=== PATIENT | male | born 1930 | race Caucasian/White ===

== ENCOUNTER 2018-08-20 09:30 | Outpatient (CLI) | payer MEDICARE, BC ==
[~2018-08-20] VITALS: Ht 185.4 cm; Wt 87.6 kg
--- NOTE | ~2018-08-20 | HEMODYNAMI ---
PATIENT:TIFFANIE CESAR MEDICAL RECORD: [id number] : 34 LOCATION:[facility] ADMISSION DATE: 08/20/18 Generatedon:08/20/201817:19 Patient name: TIFFANIE CESAR Patient #: [id number] SSN: : 1930 Date of study: 08/20/2018 Page: Of Hemodynamic Procedure Report Patient Data Patient Demographics Procedure consent was obtained First Name: TIFFANIE Gender: Male Last Name: ARSENIO : 1930 Patient #: [id number] Age: 88 year(s) Race: Unknown Additional ID: [id number] Contact details [address]: [address] [place] [address] State: [place] City: [place] Zip code: [address] Admission Admission Data Admission Date: 08/20/2018 Admission Time: 9:30 Procedure Procedure Types Cath Procedure Diagnostic Procedure LHC LHC w/Coronaries PCI Procedure Coronary Stent Coronary Stent Initial Procedure Description Procedure Date Procedure Date: 08/20/2018 Procedure Start Time: 16:54 Procedure End Time: 17:17 Procedure Staff Name Function Kash Rangel MD Performing Physician Danny Conklin RT Monitor Shon Calhoun RT Scrub Thmo Blanco RN Nurse Procedure Data Cath Procedure Fluoroscopy Diagnostic fluoroscopy Total fluoroscopy Time: 7.5 time: 7.5 min min Diagnostic fluoroscopy Total fluoroscopy dose: dose: 1201 mGy 1201 mGy Contrast Material Contrast Material Type Amount (ml) Isovue 300 78 Entry Location Entry Primary Successful Side Size Upsize Upsize Entry Closure Ybarra ccessful Closure Location (Fr) 1 (Fr) 2 (Fr) Remarks Device Remarks Radial Right 6 Fr Mechanical artery Short Compression Estimated blood loss: 10 ml Diagnostic catheters Device Type Used For End Catheter Placement DIAGNOSTIC [place] 110cm 5 Procedure Fr catheter ([id number]) Procedure Complications No complications Procedure Medications Medication Administration Route Dosage Oxygen etCO2 Nasal cannula 2 l/min Heparin Flush Bag added to field 2 bags (1000units/500ml NS) 0.9% NaCl I.V. 100 ml/hr Lidocaine 2% added to field 20 Radial Cocktail added to field (Verapomil 2mg/Nitro 400mcg/Heparin 1500units) Fentanyl I.V. 50 mcg Versed I.V. 1 mg Fentanyl I.V. 50 mcg Versed I.V. 1 mg Radial Cocktail I.A. (Verapomil 2mg/Nitro 400mcg/Heparin 1500units) Heparin Bolus I.V. 4000 units Integrilin (Bolus I.V. 7.9 ml 2mg/ml) Integrilin (Bolus wasted 2.1 ml 2mg/ml) Plavix P.O. 600 mg Hemodynamics Rest Heart Rate: 53 (bpm) Snapshots Pre Cath Intra NCS Post Cath Vital Signs Time Heart Resp SPO2 etCO2 NIBP (mmHg) Rhythm Pain Sedation Rate (ipm) (%) (mmHg) Status Level (bpm) 16:47:51 59 17 89 20.3 128/66(105) NSR 0 (11) 10(A) , No pain 16:52:07 53 17 91 0 116/56(98) NSR 0 (11) 9(A) , No pain 16:56:21 62 16 93 10.5 100/50(80) NSR 0 (11) 9(A) , No pain 17:00:27 63 17 93 28.6 114/59(89) NSR 0 (11) 9(A) , No pain 17:04:37 59 16 93 9 116/60(79) NSR 0 (11) 9(A) , No pain 17:08:47 63 17 94 21.8 112/63(85) NSR 0 (11) 9(A) , No pain 17:12:56 62 17 93 14.3 106/57(83) NSR 0 (11) 9(A) , No pain 17:17:02 61 16 94 18.8 121/62(88) NSR 0 (11) 9(A) , No pain Medications Time Medication Route Dose Verified Delivered Reason Notes Effectiveness by by 16:45:29 Oxygen etCO2 2 Kash Tomas Per physician Nasal l/min Juan Carlos Blanco RN cannula 16:45:37 Heparin Flush added 2 Kash Tomas used for Bag to bags Juan Carlos Blanco rural sociologist (1000units/500ml field NS) 16:45:47 0.9% NaCl I.V. 100 Kash Tomas Per physician ml/hr Juan Carlos Blanco RN 16:45:58 Lidocaine 2% added 20ml Kash Tomas used for to vial Juan Carlos Blanco RN procedure field 16:46:05 Radial Cocktail added Kash Tomas used for (Verapomil to Juan Carlos Blanco RN procedure 2mg/Nitro field 400mcg/Heparin 1500units) 16:51:58 Fentanyl I.V. 50 Kash Tomas for sedation mcg Juan Carlos Blanco RN 16:52:06 Versed I.V. 1 mg Kash Tomas for sedation Juan Carlos Blanco RN 16:54:47 Fentanyl I.V. 50 Kash Tomas for sedation mcg Juan Carlos Blanco RN 16:54:58 Versed I.V. 1 mg Kash Tomas for sedation Juan Carlos Blanco RN 16:55:13 Radial Cocktail I.A. Kash Hewitt for (Verapomil Juan Carlos Rangel MD vasodilation 2mg/Nitro 400mcg/Heparin 1500units) 17:00:18 Heparin Bolus I.V. 4000 Kash Tomas for units Juan Carlos Blanco RN anticoagulation 17:00:28 Integrilin I.V. 7.9 Kash Tomas for (Bolus 2mg/ml) ml Juan Carlos Blanco RN antiplatelet therapy 17:00:38 Integrilin wasted 2.1 Kash Tomas for (Bolus 2mg/ml) ml Juan Carlos Blanco RN antiplatelet therapy 17:16:54 Plavix P.O. 600 Kash Tomas for mg Juan Carlos Blanco RN antiplatelet therapy Procedure Log Time Note 16:20:40 Danny ESTEBAN(R) sent for patient. Start room use. 16:23:38 Diagnostic Cath status Elective 16:23:41 Time tracking: Regular hours (M-F 7:00 - 5:00) 16:23:45 Plan of Care:Hemodynamics will remain stable., Cardiac rhythm will remain stable., Comfort level will be maintained., Respiratory function will remain adequate., Patient/ family verbilizes understanding of procedure., Procedure tolerated without complication., Recovers from procedure without complications.. 16:40:12 Patient received from ED to CCL 2 Alert and oriented. Tansferred to table in Supine position. 16:40:14 Correct patient and procedure confirmed by team. 16:40:14 Warm blankets applied, and ramirez hugger turned on for patient comfort. 16:40:15 Signed procedure consent form obtained from patient. 16:40:16 ECG and BP/O2 sat monitors applied to patient. 16:45:29 Oxygen 2 l/min etCO2 Nasal cannula was administered by Thom Blanco RN; Per physician; 16:45:37 Heparin Flush Bag (1000units/500ml NS) 2 bags added to field was administered by Thom Blanco RN; used for procedure; 16:45:38 Vital chart was started 16:45:47 0.9% NaCl 100 ml/hr I.V. was administered by Thom Blanco RN; Per physician; 16:45:58 Lidocaine 2% 20ml vial added to field was administered by Thom Blanco RN; used for procedure; 16:46:05 Radial Cocktail (Verapomil 2mg/Nitro 400mcg/Heparin 1500units) added to field was administered by Thom Blanco RN; used for procedure; 16:50:55 Baseline sample Acquired. 16:50:59 Rhythm: sinus bradycardia 16:51:01 Full Disclosure recording started 16:51:10 H&P Date Dictated: 08/20/2018 Emergent; H&P N/A. 16:51:10 Pre-procedure instructions explained to patient. 16:51:11 Pre-op teaching completed and patient verbalized understanding. 16:51:12 Family in waiting room. 16:51:13 Patient NPO since Midnight. 16:51:15 Is the patient allergic to Iodine/contrast media? No. 16:51:16 Is patient on blood thinner?No 16:51:19 Patient diabetic? No. 16:51:22 Previous problem with sedation/anesthesia? No ? 16:51:22 Snore? Yes 16:51:23 Sleep apnea? Yes 16:51:24 Deviated septum? No 16:51:25 Opens mouth fully? Yes 16:51:25 Sticks out tongue? Yes 16:51:27 Airway obstruction? No ? 16:51:28 Dentures? No ? 16:51:31 Pre procedure: right dorsailis pedis pulse 1+ Palpable, but thready & weak; easily obliterated 16:51:32 Modified Ziggy's test Ulnar < 7 seconds 16:51:34 Patient pain scale 0/10 ?. 16:51:46 IV patent on arrival in left forearm with 0.9% NaCl at [facility]. 16:51:50 Lab results completed and on chart. 16:51:53 Right Radial & Right Groin area was prepped with chlora-prep and draped in sterile fashion 16:51:54 Alarms reviewed by R. N. 16:51:54 Sharps counted by scrub and verified by R.N. 16:51:55 --------ALL STOP TIME OUT------ 16:51:56 Final Timeout: patient, procedure, and site verified with staff and physician. All members of the team are in agreement. 16:51:58 Fentanyl 50 mcg I.V. was administered by Thom Blanco RN; for sedation; 16:51:58 Right Radial & Right Groin site verified by team. 16:52:00 Physical assessment completed. ASA score P 2 - A patient with mild systemic disease as per Kash Rangel MD. 16:52:03 Sedation plan: IV Moderate Sedation Medication:Versed, Fentanyl 16:52:06 Versed 1 mg I.V. was administered by Thom Blanco RN; for sedation; 16:53:44 Use device set Radial Dx or PCI 16:53:49 Tegaderm 4 x 4 (1626W) opened to sterile field. 16:53:50 ACIST Hand Control (47246) opened to sterile field. 16:53:50 ACIST Manifold (12411) opened to sterile field. 16:53:51 ACIST Syringe (57344) opened to sterile field. 16:53:51 Medline Cath Pack ([id number]) opened to sterile field. 16:53:52 Bag Decanter () opened to sterile field. 16:53:52 DIAGNOSTIC WIRE .035 260cm J wire (857915) opened to sterile field. 16:53:52 MBrace Wrist Support ([id number]) opened to sterile field. 16:53:54 SHEATH 6FR Slender (90-9138) opened to sterile field. 16:54:02 Procedure started. 16:54:12 Local anesthetic to right radial artery with Lidocaine 2% by Kash Rangel MD.INITIAL ACCESS ONLY 16:54:35 A 6 Fr Short sheath was inserted into the Right Radial artery 16:54:42 A DIAGNOSTIC [place] 110cm 5 Fr catheter ([id number]) was advanced over the wire and used for Procedure. 16:54:47 Fentanyl 50 mcg I.V. was administered by Thom Blanco RN; for sedation; 16:54:58 Versed 1 mg I.V. was administered by Thom Blanco RN; for sedation; 16:55:08 LV angiography performed. 16:55:09 LV gram done using PHILLIPS 16:55:13 Radial Cocktail (Verapomil 2mg/Nitro 400mcg/Heparin 1500units) I.A. was administered by Kash Rangel MD; for vasodilation; 16:55:15 EF : 50 % 16:55:20 Injector settings: Ml/sec: 7, Volume: 15, 16:56:17 LCA angiography performed. 16:56:48 Use device set JOE PCI 16:56:51 INFLATOR Merit BasixCompak (UP0464) opened to sterile field. 16:57:03 CHOICE PT Extra Support 182cm wire ([id number]) opened to sterile field. 16:57:11 RCA angiography performed. 16:58:09 Catheter exchanged over wire. 16:58:20 GUIDE 6FR AR 1.0 SH catheter ([id number]) opened to sterile field. 17:00:18 Heparin Bolus 4000 units I.V. was administered by Thom Blacno RN; for anticoagulation; 17:00:25 6 Fr AR 1 SH guide catheter was inserted over the wire 17:00:28 Integrilin (Bolus 2mg/ml) 7.9 ml I.V. was administered by Thom Blanco RN; for antiplatelet therapy; 17:00:38 Integrilin (Bolus 2mg/ml) 2.1 ml wasted was administered by Thom Blanco RN; for antiplatelet therapy; 17:00:41 CPTXS wire advanced. 17:01:24 Wire removed. unable to cross lesion. 17:01:26 Guide catheter removed. 17:01:38 GUIDE 6FR AR 2.0 SH catheter ([id number]) opened to sterile field. 17:01:49 6 Fr AR 2 SH guide catheter was inserted over the wire 17:02:25 CPTXS wire advanced. 17:03:48 Wire advanced across lesion. 17:04:07 Inflate balloon Inflation number: 1 A EUPHORA 3.5 x 15 Balloon ([id number]) was prepped and advanced across the Prox RCA, then inflated to 15 JUSTIN for 0:10 (min:sec). 17:04:36 Inflation number: 2 The EUPHORA 3.5 x 15 Balloon ([id number]) was reinflated across the Prox RCA, to 17 JUSTIN for 0:10 (min:sec). 17:04:38 Balloon removed over the wire. 17:06:41 WHISPER 190cm wire ([id number]) opened to sterile field. 17:06:55 Whisper wire advanced as a jil wire. 17:08:36 The NIMISHA RX 3.5 x 12 stent ([id number]) was advanced then removed because of failure to cross lesion 17:09:58 Inflate balloon Inflation number: 3 A EUPHORA 4.0 x 15 Balloon ([id number]) was prepped and advanced across the Prox RCA, then inflated to 13 JUSTIN for 0:10 (min:sec). 17:11:44 Balloon removed over the wire. 17:12:15 Whisper wire removed. 17:12:18 Place stent Inflation Number: 4 A NIMISHA RX 3.5 x 12 stent ([id number]) was prepped and advanced across the Prox RCA. The stent was deployed at 17 JUSTIN for 0:10 (min:sec). 17:12:49 TR BAND Standard ([id number]) opened to sterile field. 17:12:54 Balloon removed over the wire. 17:12:55 Stent catheter was removed intact over wire. 17:12:55 Wire removed. 17:12:56 Guide catheter removed. 17:14:13 Sheath removed intact; hemostasis achieved with Mechanical Compression to the Right Radial artery. 17:14:14 Procedure ended.(Physican Out) 17:14:26 Fluoroscopy time 07.50 minutes. 17:14:36 Flurop Dose total: 1201 17:14:36 Fluoroscopy dose: 1201 mGy 17:14:41 Contrast amount:Isovue 300 78ml. 17:14:42 Sharps counted by scrub and verified by R.N. 17:14:45 TR band inflated with 10cc of air. 17:14:46 Insertion/operative site no bleeding no hematoma. 17:16:11 Post Procedure Pulses reassessed and unchanged 17:16:13 Post-procedure physical assessment completed. ASA score P 2 - A patient with mild systemic disease as per Kash Rangel MD. 17:16:16 Post procedure rhythm: unchanged. 17:16:19 Estimated blood loss: 10 ml 17:16:20 Post procedure instruction explained to patient.Patient verbalizes understanding. 17:16:20 Patient needs reinforcement of post procedure teaching. 17:16:27 Procedure type changed to Cath procedure, Diagnostic procedure, LHC, LHC w/Coronaries, PCI procedure, Coronary Stent, Coronary Stent Initial 17:16:28 Procedure and supply charges have been captured, reviewed, submitted and are correct. 17:16:30 Procedure Complication : No complications 17:16:54 Plavix 600 mg P.O. was administered by Thom Blanco RN; for antiplatelet therapy; 17:16:54 Vital chart was stopped 17:16:55 See physician's report for complete and final results. 17:16:58 Report given to PCU. 17:17:00 Patient transfered to PCU with Bed. 17:17:02 Procedure ended. 17:17:02 Full Disclosure recording stopped 17:18:49 End room use (Document Last) Intervention Summary Intervention Notes Time ActionType Lesion and Equipment Used Action# Pressure Duration Attributes 17:04:07 Inflate Prox RCA EUPHORA 3.5 x 1 15 00:10 balloon 15 Balloon ([id number]) 17:04:36 Reinflate Prox RCA EUPHORA 3.5 x 2 17 00:10 balloon 15 Balloon ([id number]) 17:08:36 Discard NIMISHA RX 3.5 x Stent 12 stent ([id number]) 17:09:58 Inflate Prox RCA EUPHORA 4.0 x 3 13 00:10 balloon 15 Balloon ([id number]) 17:12:18 Place stent Prox RCA NIMISHA RX 3.5 x 4 17 00:10 12 stent ([id number]) Device Usage Item Name Manufacture Quantity Catalog Number Hospital Part Current M inimal Lot# / Charge Number Stock Stock Serial# Code Tegaderm 4 x 4 3M 1 1626W 991223 324200 [id number] 5 (1626W) ACIST Hand Acist 1 76580 231514 788221 679521 5 Pacific DataVision (20536Bunkr ACIST Manifold Acist 1 27250 905779 912765 477150 5 (58299) Medical Systems Inc ACIST Syringe Acist 1 82720 765316 684613 705882 2 0 (89976) Medical Systems Inc Medline Cath Medline 1 [id number] 098840 38328 105804 5 Pack ([id number]) Bag Decanter Microtek 1 2001S 812486 43245 794400 5 () Medical Inc. DIAGNOSTIC [place] 1 677380 811975 744633 753076 3 0 WIRE .035 260cm J wire (522079) MBrace Wrist Advanced 1 140-0250-00 655318 47943 779765 5 Support Vascular ([id number]) Dynamics SHEATH 6FR Terumo 1 [id number] 018867 236338 881339 5 Slender (80-1060) DIAGNOSTIC Terumo 1 405013 248634 009021 022939 5 [place] 110cm 5 Fr catheter (899419) INFLATOR Merit Merit 1 LL6227 159071 322232 464012 1 5 ATEME (JS2288) CHOICE PT [place] 1 [id number] 466696 328942 869130 5 Extra Support Scientific 182cm wire ([id number]) GUIDE 6FR AR Medtronic 1 [id number] 911903 21653 642317 1 1.0 SH catheter ([id number]) GUIDE 6FR AR Medtronic 1 [id number] 937523 15540 239005 1 2.0 SH catheter ([id number]) EUPHORA 3.5 x Medtronic 1 [id number] 890634 089915 133449 5 [id number] 15 Balloon ([id number]) WHISPER 190cm Giron 1 [id number] 164243 299556 912419 5 wire Vascular ([id number]) NIMISHA RX 3.5 x Medtronic 1 [id number] 720555 7119119 506108 5 [id number] 12 stent ([id number]) EUPHORA 4.0 x Medtronic 1 [id number] 105804 267091 606055 5 [id number] 15 Balloon ([id number]) TR BAND Terumo 1 [id number] 042869 692949 356104 4 0 Standard ([id number]) Signature Audit [place] Stage Time Signature Unsigned Intra-Procedure 08/20/2018 Danny Conklin 5:19:10 PM RT(R) Signatures Monitor : Danny Conklin RT Signature : Date : Time : [place] [id number]
--- NOTE | ~2018-08-20 | HEMODYNAMI ---
PATIENT:TIFFANIE CESAR MEDICAL RECORD: [id number] : 34 LOCATION:[facility] D.2116 ADMISSION DATE: 08/20/18 Generatedon:08/21/20189:46 Patient name: TIFFANIE CESAR Patient #: [id number] SSN: : 1930 Date of study: 08/21/2018 Page: Of Hemodynamic Procedure Report Patient Data Patient Demographics Procedure consent was obtained First Name: TIFFAINE Gender: Male Last Name: ARSENIO : 1930 Patient #: [id number] Age: 88 year(s) Race: Unknown Additional ID: [id number] Contact details Address: [address] [place] [address] State: [place] City: [place] Zip code: [address] Admission Admission Data Admission Date: 08/20/2018 Admission Time: 9:30 Room #: 2116 Procedure Procedure Types Cath Procedure PCI Procedure Coronary Stent Coronary Stent Initial Procedure Description Procedure Date Procedure Date: 08/21/2018 Procedure Start Time: 9:38 Procedure End Time: 9:44 Procedure Staff Name Function Kash Rangel MD Performing Physician Thom Blanco RN Firefighter Duyen Jernigan RT Scrub José Miguel Ewing RN Nurse Marcio Duncan RT Monitor Chaz Ramesh RT Monitor Procedure Data Cath Procedure Fluoroscopy Diagnostic fluoroscopy Total fluoroscopy Time: 1.3 time: 1.3 min min Diagnostic fluoroscopy Total fluoroscopy dose: 228 dose: 228 mGy mGy Contrast Material Contrast Material Type Amount (ml) Isovue 300 38 Entry Location Entry Primary Successful Side Size Upsize Upsize Entry Closure Succes sful Closure Location (Fr) 1 (Fr) 2 (Fr) Remarks Device Remarks Femoral Right 6 Fr Exoseal artery Short Procedure Complications No complications Procedure Medications Medication Administration Route Dosage 0.9% NaCl I.V. 100 ml/hr Oxygen etCO2 Nasal cannula 2 l/min Heparin Flush Bag added to field 2 bags (1000units/500ml NS) Lidocaine 2% added to field 20 Versed I.V. 1 mg Heparin Bolus I.V. 4000 units Fentanyl I.V. 50 mcg Hemodynamics Rest Heart Rate: 64 (bpm) Snapshots Pre Cath Intra NCS Post Cath Vital Signs Time Heart Resp SPO2 etCO2 NIBP (mmHg) Rhythm Pain Sedation Rate (ipm) (%) (mmHg) Status Level (bpm) 9:10:41 65 13 96 2.2 148/75(131) NSR 0 (11) 10(A) , No pain 9:14:59 57 17 92 0 141/69(109) NSR 0 (11) 10(A) , No pain 9:19:17 57 10 92 0 134/66(108) NSR 0 (11) 10(A) , No pain 9:23:31 57 19 94 0 129/72(109) NSR 0 (11) 10(A) , No pain 9:27:45 57 14 91 0 127/65(108) NSR 0 (11) 10(A) , No pain 9:31:55 58 15 91 0 126/71(105) NSR 0 (11) 10(A) , No pain 9:36:07 56 10 92 0 136/65(109) NSR 0 (11) 9(A) , No pain 9:40:23 63 13 92 0 129/68(115) NSR 0 (11) 9(A) , No pain 9:45:28 54 12 93 0 129/69(101) NSR 0 (11) 10(A) , No pain Medications Time Medication Route Dose Verified Delivered Reason Notes Effectiveness by by 9:10:09 0.9% NaCl I.V. 100 José Miguel José Miguel Per physician ml/hr Gildardo Ewing RN RN 9:10:19 Oxygen etCO2 2 José Miguel José Miguel Per physician Nasal l/min Gildardo Ewing cannula RN RN 9:10:40 Heparin Flush added 2 José Miguel José Miguel used for Bag to bags Gildardo Ewing procedure (1000units/500ml field MANZANARES RN NS) 9:10:50 Lidocaine 2% added 20ml José Miguel José Miguel for local to vial Gildardo Ewing anesthetic field MANZANARES RN 9:32:17 Fentanyl I.V. 50 José Miguel José Miguel for sedation mcg Gildardo Ewing RN RN 9:32:30 Versed I.V. 1 mg José Miguel José Miguel for sedation Gildardo Ewing RN RN 9:40:34 Heparin Bolus I.V. 4000 José Miguel Valdez for units Gildardo Ewing anticoagulation RN hedge fund accountant Log Time Note 8:55:55 Diagnostic Cath status Urgent 8:55:58 Thom Blanco RN sent for patient. Start room use. 8:56:00 Time tracking: Regular hours (M-F 7:00 - 5:00) 8:56:04 Plan of Care:Hemodynamics will remain stable., Cardiac rhythm will remain stable., Comfort level will be maintained., Respiratory function will remain adequate., Patient/ family verbilizes understanding of procedure., Procedure tolerated without complication., Recovers from procedure without complications.. 9:09:24 Patient received from Med II to CCL 2 Alert and oriented. Tansferred to table in Supine position. 9:09:25 Warm blankets applied, and ramirez hugger turned on for patient comfort. 9:09:25 Correct patient and procedure confirmed by team. 9:09:27 Signed procedure consent form obtained from patient. 9::28 ECG and BP/O2 sat monitors applied to patient. 9:09:28 Vital chart was started 9:09:29 Baseline sample Acquired. 9:10:09 0.9% NaCl 100 ml/hr I.V. was administered by José Miguel Ewing RN; Per physician; 9:10:19 Oxygen 2 l/min etCO2 Nasal cannula was administered by José Miguel Ewing RN; Per physician; 9:10:40 Baseline sample Acquired. 9:10:40 Heparin Flush Bag (1000units/500ml NS) 2 bags added to field was administered by José Miguel Ewing RN; used for procedure; 9:10:45 Rhythm: sinus rhythm 9:10:47 Full Disclosure recording started 9:10:50 Lidocaine 2% 20ml vial added to field was administered by José Miguel Ewing RN; for local anesthetic; 9:11:21 H&P Date Dictated: 08/21/2018 New H&P dictated by physician.. 9:11:23 Pre-procedure instructions explained to patient. 9:11:24 Pre-op teaching completed and patient verbalized understanding. 9:11:27 Family in waiting room. 9:11:33 Patient NPO since Midnight. 9:11:54 Is the patient allergic to Iodine/contrast media? No. 9:11:58 Is patient on blood thinner?Yes 9:12:01 ACC The patient was administered the following blood thiners within the last 24 hours: ACCPlavix 9:12:04 Patient diabetic? No. 9:12:10 ----Pre-sedation anethsthesia assessment.---- 9:12:15 Snore? Yes 9:12:16 Sleep apnea? Yes 9:12:18 Deviated septum? No 9:12:19 Opens mouth fully? Yes 9:12:20 Sticks out tongue? Yes 9:12:23 Airway obstruction? No ? 9:12:27 Dentures? No ? 9:15:24 Pre procedure: right dorsailis pedis pulse 1+ Palpable, but thready & weak; easily obliterated 9:15:59 Patient pain scale 0/10 ?. 9:16:24 IV patent on arrival in left antecubital with 0.9% NaCl at 10ml/hr. 9:21:49 Right groin area was prepped with chlora-prep and draped in sterile fashion 9:21:50 Alarms reviewed by R. N. 9:21:51 Sharps counted by scrub and verified by R.N. 9:28:20 Zero performed for pressure channel P1 9:29:58 Physician arrived 9:29:59 --------ALL STOP TIME OUT------ 9:30:00 Final Timeout: patient, procedure, and site verified with staff and physician. All members of the team are in agreement. 9:30:02 Right groin site verified by team. 9:30:10 Physical assessment completed. ASA score P 2 - A patient with mild systemic disease as per Kash Rangel MD. 9:30:14 Sedation plan: IV Moderate Sedation Medication:Versed, Fentanyl 9:30:25 Bag Decanter (2002) opened to sterile field. 9:30:25 Medline Cath Pack ([id number]) opened to sterile field. 9:30:26 DIAGNOSTIC WIRE .035 260cm J wire (101637) opened to sterile field. 9:30:27 ACIST Hand Control (14369) opened to sterile field. 9:30:27 ACIST Manifold (47944) opened to sterile field. 9:30:28 DIAGNOSTIC Multipack 5Fr catheter set (OR8530) opened to sterile field. 9:30:29 Tegaderm 4 x 4 (1626W) opened to sterile field. 9:30:41 ACIST Syringe (57216) opened to sterile field. 9:31:03 SHEATH 6FR [place] (SYM353) opened to sterile field. 9:31:03 CHOICE PT Extra Support 182cm wire ([id number]) opened to sterile field. 9:31:04 INFLATOR Merit BasixCompak (XD6959) opened to sterile field. 9:32:17 Fentanyl 50 mcg I.V. was administered by José Miguel Ewing RN; for sedation; 9:32:30 Versed 1 mg I.V. was administered by José Miguel Ewing RN; for sedation; 9:37:32 GUIDE 6FR XBLAD 4.0 catheter ([id number]) opened to sterile field. 9:37:36 Procedure started. 9:38:00 Local anesthetic to right femoral artery with Lidocaine 2% by Kash Rangel MD.INITIAL ACCESS ONLY 9:38:08 A 6 Fr Short sheath was inserted into the Right Femoral artery 9:39:04 6 Fr XBLAD 4 guide catheter was inserted over the wire 9:39:12 CPTES wire advanced. 9:40:34 Heparin Bolus 4000 units I.V. was administered by José Miguel Ewing RN; for anticoagulation; 9:41:48 Place stent Inflation Number: 1 A NIMISHA RX 2.5 x 15 stent ([id number]) was prepped and advanced across the Mid LAD. The stent was deployed at 15 JUSTIN for 0:13 (min:sec). 9:41:50 Stent catheter was removed intact over wire. 9:41:51 Wire removed. 9:41:54 Guide catheter removed. 9:41:59 Contrast amount:Isovue 300 38ml. 9:42:07 Sheath removed intact; hemostasis achieved with Exoseal to the Right Femoral artery. 9:42:08 Procedure ended.(Physican Out) 9:42:49 EXOSEAL 6Fr (EX600) opened to sterile field. 9:43:17 Fluoroscopy time 01.30 minutes. 9:43:26 Flurop Dose total: 228 9:43:26 Fluoroscopy dose: 228 mGy 9:43:27 Sharps counted by scrub and verified by R.N. 9:43:28 Insertion/operative site no bleeding no hematoma. 9:43:30 Post-op/insertion site Right Femoral artery dressed using a 4 x 4 and Tegaderm. 9:43:33 Post right femoral artery:stable 9:43:35 Post Procedure Pulses reassessed and unchanged 9:43:37 Post procedure: right dorsailis pedis pulse 1+ Palpable, but thready & weak; easily obliterated. 9:43:39 Post procedure rhythm: sinus rhythm 9:43:42 Post procedure instruction explained to patient.Patient verbalizes understanding. 9:43:44 Procedure and supply charges have been captured, reviewed, submitted and are correct. 9:44:03 Procedure Complication : No complications 9:44:05 Vital chart was stopped 9:44:06 See physician's report for complete and final results. 9:44:41 Report given to PCU. 9:44:51 Patient transfered to PCU with Bed. 9:44:53 Procedure ended. 9:44:53 Full Disclosure recording stopped 9:44:57 End room use (Document Last) Intervention Summary Intervention Notes Time ActionType Lesion and Equipment Used Action# Pressure Duration Attributes 9:41:48 Place stent Mid LAD NIMISHA RX 2.5 x 1 15 00:13 15 stent ([id number]) Device Usage Item Name Manufacture Quantity Catalog Number Hospital Part Current M inimal Lot# / Charge Number Stock Stock Serial# Code Bag Decanter Microtek 1 [id number] 22644 813681 5 () Medical Inc. Medline Cath Medline 1 [id number] 903192 70755 860348 5 Pack ([id number]) DIAGNOSTIC [place] 1 052429 923608 551276 533842 3 0 WIRE .035 260cm J wire (818487) ACIST Hand Acist 1 27807 230374 654324 009561 5 Control Medical (33047) Systems Inc ACIST Manifold Acist 1 19548 745775 455636 460612 5 (50698) Medical Systems Inc DIAGNOSTIC Cardinal 1 YJ5732 061034 18556 944298 3 0 Multipack 5Fr Health catheter set (XX5827) Tegaderm 4 x 4 3M 1 1626W 954890 690198 266916 5 (1626W) ACIST Syringe Acist 1 51817 480158 089173 472243 2 0 (55797) Medical Systems Inc SHEATH 6FR Terumo 1 FVW562 731980 213933 675308 4 0 [place] (QNO227) CHOICE PT [place] 1 [id number] 670742 720847 889095 5 Extra Support Scientific 182cm wire ([id number]) INFLATOR Merit Merit 1 WZ5486 042907 468806 602996 1 5 [facility] (HT2840) GUIDE 6FR Cardinal 1 [id number] 190605 580371 619474 3 XBLAD 4.0 Health catheter ([id number]) NIMISHA RX 2.5 x Medtronic 1 [id number] 962132 8362951 340548 5 [id number] 15 stent ([id number]) EXOSEAL 6Fr Cardinal 1 EX600 166360 231698 514870 1 0 (EX600) Health Signature Audit [place] Stage Time Signature Unsigned Intra-Procedure 08/21/2018 Chaz Ramesh RT(R) 9:46:25 AM Signatures Monitor : Marcio Duncan RT Signature : Date : Time : Monitor : Chaz Ramesh RT Signature : Date : Time : [place] [address] [place] [address]
[2018-08-20] MEDS ORDERED: BAYER CHEWABLE81 MG PO (09:35)
[2018-08-20] MEDS ORDERED: LISINOPRIL5 MG PO (09:35)
[2018-08-20] MEDS ORDERED: SYNTHROID175 MCG PO (09:35)
[2018-08-20] MEDS ORDERED: NORVASC10 MG PO (09:36)
[2018-08-20] MEDS ORDERED: VITAMIN B650 MG PO (09:36)
[2018-08-20] MEDS ORDERED: ZETIA10 MG PO (09:36)
[2018-08-20 10:39] LABS: CKMB 2.4 U/L (0.0-3.6); CREATINE KINASE 80 UL (21-232)
[2018-08-20 10:45] LABS: TROPONIN-I 0.196 ng/mL (0.000-0.060)
--- NOTE | 2018-08-20 17:46 | NUR ---
RECIEVED TO ROOM VIA STRETCHER FROM NURSE AIDE WITH TR BAND TO R/WRIST CDI NO BLEEDING OR HEMATOMA NOTED. PATIENT DENIED CHEST PAIN ON ARRIVAL. CONNECTED TO MONITOR WITH HR 56 BP 126/58
--- NOTE | 2018-08-20 18:15 | NUR ---
PATIENT AWAKE, EATING GRAPES. VSS ON 2L NASAL CANNULA. RIGHT TR BAND IN PLACE, NO S/S OF BLEEDING OR HEMATOMA. FAMILY AT BEDSIDE. NO C/O PAIN, NUMBNESS, OR TINGLING. NO N/V.
--- NOTE | 2018-08-20 18:25 | NUR ---
REPORT CALLED TO ZAKIYA ON MED 2. ALL QUESTIONS ANSWERED. FAMILY AWARE OF TRANSFER AND WILL ACCOMPANY TO ROOM 16 ON MED 2.
[2018-08-20 19:00] VITALS: BP 125/76
--- NOTE | 2018-08-20 19:45 | NUR ---
PT ARRIVED ON UNIT FROM [employer] SUPERVISOR AT 1900. SETTLED INTO ROOM. ASSESSED RIGHT WRIST TR BAND SITE. NO AIR HAS BEEN RELEASED AT THIS TIME. EXPLAINED PROCESS OF TR REMOVAL TO PATIENT/. MONITOR AND CPOC.
--- NOTE | 2018-08-20 21:17 | NUR ---
REMOVED 3ML OF AIR FROM TR BAND. NO IMMEDIATE BLEEDING NOTED. WILL MONITOR. JUICE PROVIDED. AT BEDSIDE.
--- NOTE | 2018-08-20 22:18 | NUR ---
PT REFUSED BEDTIME METOPROLOL, STATES HE USUALLY HAS TAKEN ALL HIS MEDS BY THIS TIME. BP 125/76. PT STATES HE WILL START BACK IN THE AM. AT BEDSIDE. NO OTHER NEEDS VOICED. MONITOR AND CPOC.
--- NOTE | 2018-08-21 02:09 | NUR ---
RESTING IN BED WITH NO DISTRESS. AT BEDSIDE. 67 SR/1DEGREE HB. MONITOR AND CPOC.
[2018-08-21 02:17] VITALS: BP 125/76; Ht 185.4 cm; Wt 87.6 kg
[2018-08-21 04:00] VITALS: BP 147/71
--- NOTE | 2018-08-21 06:43 | NUR ---
PT HAS SLEPT WELL THIS NIGHT. SITE TO RIGHT WRIST WITH DRESSING C/D/I. TR BAND LOOSELY ON JUST A REMINDER TO NOT HEALTH CARE LAW SPECIALIST OR PUSH DOWN ON THAT WRIST. AT BEDSIDE. AWAKENED PT TO SIGN CONSENT FOR [facility] THIS AM. PT HAS BEEN NPO SINCE MIDNIGHT. MONITOR AND CPOC.
[2018-08-21 07:00] VITALS: BP 138/68
--- NOTE | 2018-08-21 07:30 | NUR ---
RECEIVED PT IN BED EYES CLOSED RESP UNLABORED NAD NOTED
--- NOTE | 2018-08-21 09:46 | HP ---
PATIENT: TIFFANIE CESAR MEDICAL RECORD: [id number] ACCOUNT: [id number] LOCATION:[address] : 34 ADMISSION DATE: 08/20/18 PCP: ANYA SMITH MD HISTORY AND PHYSICAL EXAMINATION DIAGNOSES: 1. Unstable angina. 2. Coronary artery disease. 3. Previous coronary stenting. 4. Hypertension. 5. Hyperlipidemia. HISTORY OF PRESENT ILLNESS: This is a gentleman who is known to us. Last stenting has been approximately 13 years ago. He woke up this morning, diaphoretic with chest discomfort and shortness of breath. His troponin from [facility] was positive. He is pain free at this time. Echocardiogram reveals anteroapical hypokinesis. EKG is with nonspecific ST-T abnormalities. OVERALL IMPRESSION: Chest discomfort, non-Q-wave myocardial infarction. We will proceed with coronary angiography. Further care depends upon findings of the angiography. We will start him on Lopressor 25 mg b.i.d., but we will not use a statin as he has had statin intolerance in the past. Continue with Zetia that he was previously on. TRANSINT:[id number] Voice Confirmation ID: [id number] DOCUMENT ID: [id number] ERIN AL MD at 0946 CC: [id number] DICTATION DATE: 08/20/18 1436 LEAD SOFTWARE TESTER: 08/20/18 1507 REG [facility] [address] [place] [address]
--- NOTE | 2018-08-21 09:46 | EC ---
PATIENT:TIFFANIE CESAR DATE OF SERVICE: 08/20/18 SEX: M MEDICAL RECORD: [id number] DATE OF : 34 LOCATION:D.M2 D.211 AGE OF PATIENT: 88 ADMISSION DATE: 08/20/18 REFERRING PHYSICIAN: INTERPRETING PHYSICIAN: ERIN RANGEL MD ECHOCARDIOGRAM REPORT ECHO CHARGES 4 ECHO COMPLETE Date: 08/20/18 CLINICAL DIAGNOSIS: ECHOCARDIOGRAPHIC MEASUREMENTS (adult normal given) AC root (d.<3.7cm) 3.9 cm LV Septum d (<1.2 cm> 1.1 cm Valve Excursion 2.3 cm LV Septum (systole) 1.6 cm Left Atria (s.<4.0cm> 4.5 cm LVPW d(<1.2cm) 1.3 cm RV (d.<2.3cm) 2.5 cm LVPW (sytole) 1.8 cm LV diastole(<5.6CM) 5.7 cm MV E-F(>70mm/sec) cm LV systole 3.8 cm LVOT Diameter 2.2 cm MV exc.(>10mm) cm Est.ejection fraction (50-75%) % DOPPLER: LVIT cm/sec A 102 cm/sec E 58.0 cm/sec LA cm/sec RVSP mmHg LVOT 104 cm/sec AOP1/2T m/s Asc. Ao 117 cm/sec RVOT 62.0 cm/sec RA cm/sec PA 80.0 cm/sec AV Gradient Peak 5.5 mmHg AV Mean 2.9 mmHg AV Area 3.0 cm MV Gradient Peak 5.7 mmHg MV Mean 1.3 mmHg MV Area cm COMMENTS: Sales Representative Publications: [employer] Mid Level Practitioner: 1 Dr. Rangel TAPE# PACS Pericardial Effusion N DATE OF SERVICE: 08/20/2018 FINDINGS: 1. Left ventricular chamber size is within normal limits. Left ventricular systolic function is mildly reduced. Overall ejection fraction is 40% to 45%. 2. Left atrium is enlarged at 4.5 cm. Right atrium and right ventricle chamber sizes are within normal limit. 3. Valvular structures have normal structure and motion. 4. Doppler interrogation reveals only trace tricuspid regurgitation. No other valvular insufficiency or stenosis. ECHOCARDIOGRAM REPORT [id number] TIFFANIE CESAR 5. No evidence of pericardial effusion or left ventricular thrombus. TRANSINT:[id number] Voice Confirmation ID: [id number] DOCUMENT ID: [id number] ERIN RANGEL MD at 0946 CC: [id number] DICTATION DATE: 08/20/18 1526 MACHINE INSPECTOR: 08/20/18 1714 REG [facility] [address] [place] [id number]
[2018-08-21] MEDS ORDERED: PLAVIX75 MG PO (10:17)
--- NOTE | 2018-08-21 10:23 | OP ---
PATIENT NAME: TIFFANIE CESAR MEDICAL RECORD: [id number] :34 LOCATION:D.M2 D.2116 ADMISSION DATE: SURGEON: ERIN AL MD DATE OF OPERATION: 08/20/2018 PROCEDURES: 1. PTCA and stent, RCA. 2. Left heart catheterization. 3. Selective coronary angiography. 4. Left ventriculogram. INDICATION: Angina and coronary artery disease. PROCEDURE IN DETAIL: After informed consent was obtained with detailed description of risks and benefits as well as alternative therapies, the patient elected to proceed with angiogram and angioplasty. The right radial area was prepped and draped in normal sterile fashion. The right radial artery was cannulated via modified Seldinger with placement of 6-Mauritanian sheath. All catheters were exchanged through this sheath. FINDINGS: Left ventriculogram performed in standard 30-degree PHILLIPS view reveals good cardiac wall motion throughout all segments. Overall ejection fraction is 55%. SELECTIVE CORONARY ANGIOGRAPHY: 1. Left main has no significant angiographic disease. 2. Left anterior descending has previously placed stents. These are patent; however, after this, there is 80% stenosis. 3. Left circumflex has moderate irregularities, but no flow-limiting stenosis. 4. Right coronary has 99% stenosis proximally. PTCA AND STENT OF THE RIGHT CORONARY: The stent used was 3.5 x 12-mm [place]. Result was 0% residual stenosis. OVERALL IMPRESSION: Successful PTCA and stent of the RCA, going from 99% initial stenosis to 0% residual. PLAN: PTCA and stent of the LAD in the near future. TRANSINT:[id number] Voice Confirmation ID: [id number] DOCUMENT ID: [id number] ERIN AL MD at 1023 CC: [id number] DICTATION DATE: 08/20/18 1717 TREATING ENGINEER: 08/20/18 1818 REG [facility] [address] [place] [address]
--- NOTE | 2018-08-21 10:23 | NUR ---
PLAVIX CALLED TO [facility] IN [place] PER PATIENT REQUEST. 75 MG #30 WITH 6 REFILLS. I SPOKE WITH JANELL-PHARMACIST.
[2018-08-21 10:45] LABS: BASOPHILS 0.4 % (0-2); EOSINOPHILS 7.1 % (0-7); IMMATURE GRANULOCYTES 0.4 % (0-5); LYMPHOCYTES 16.3 % (15-50); MCH 31.6 pg (26.0-34.0); MCHC 34.1 g/dL (31.0-37.0); MCV 92.6 fL (80.0-100.0); MEAN PLATELET VOLUME 9.1 fL (7.4-10.4); MONOCYTES 10.2 % (2-11); NEUTROPHILS 65.6 % (40-80); PLATELET COUNT 174 10x3/uL (130-400); RBC 4.43 10x6/uL (4.20-6.10); RDW 13.3 % (11.5-14.5); WBC 7.3 10x3/uL (4.8-10.8)
[2018-08-21 10:52] LABS: ANION GAP 13.2 mmol/L (8-16); CALCIUM 8.5 mg/dL (8.5-10.1); CREATININE - SERUM 1.2 mg/dL (0.6-1.3); POTASSIUM - SERUM 4.2 mmol/L (3.5-5.1)
--- NOTE | 2018-08-21 14:15 | NUR ---
REVIEWED DISCHARGE INSTRUCTIONS WITH PT STATES UNDERSTANDING COPY GIVEN DCD SALINE LOCK TO LAC WITH IV CATHETER INTACT SITE FREE OF REDNESS OR EDEMA PT DISCHARGED HOME LEFT UNIT VIA W/C IN STABLE CONDITION WITH ALL PERSONAL BELONGINGS
--- NOTE | 2018-08-21 18:37 | OP ---
PATIENT NAME: TIFFANIE CESAR MEDICAL RECORD: [id number] :34 LOCATION:D.CAT ADMISSION DATE: SURGEON: ERIN AL MD DATE OF OPERATION: 08/20/2018 PROCEDURES: 1. PTCA and stent, LAD. 2. Selective coronary angiography. INDICATION: Angina and coronary artery disease. PROCEDURE IN DETAIL: After informed consent was obtained with detailed description of risks and benefits as well as alternative therapies, the patient elected to proceed with angiogram and angioplasty. The right femoral area was prepped and draped in normal sterile fashion. Right femoral artery was cannulated via modified Seldinger technique with placement of 6-Hungarian sheath. All catheters were exchanged through this sheath. FINDINGS: The left anterior descending has 80% stenosis in the mid vessel. This was addressed with a 2.5 x 15-mm [place]. Result was 0% residual stenosis. OVERALL IMPRESSION: Successful PTCA and stent of the LAD, going from 80% initial stenosis to 0% residual. TRANSINT:[id number] Voice Confirmation ID: [id number] DOCUMENT ID: [id number] ERIN AL MD at 1837 CC: [id number] DICTATION DATE: 08/21/18 0950 BRAND AMBASSADOR PROMOTIONAL MODEL: 08/21/18 1121 DEP CLI 08/21/18 [place] [address] [place] [address]
--- NOTE | 2018-08-23 18:15 | DS ---
PATIENT:TIFFANIE CESAR :34 MEDICAL RECORD: [id number] DISCHARGE SUMMARY ADMISSION DATE: 08/20/18 DISCHARGE DATE: 08/21/18 DISCHARGE DIAGNOSES: 1. Unstable angina. 2. Coronary artery disease. 3. Percutaneous transluminal coronary angioplasty stent right coronary artery and left anterior descending this admission. HOSPITAL COURSE: This is a gentleman who presents with unstable anginal symptomatology, found to have disease of the RCA and LAD, underwent successful PTCA stent of the RCA and LAD, was discharged home with the addition of aspirin and Plavix to his medical regimen and will follow up with [facility] 1 month. He was started on a beta-hannah. This was discontinued due to bradycardia. TRANSINT:[id number] Voice Confirmation ID: [id number] DOCUMENT ID: [id number] ERIN AL MD at 1815 CC: [id number] DICTATION DATE: 08/21/18 0948 PROGRAM SUPPORT CLERK: 08/21/18 2206 [facility] CLI 08/21/18 [id number] [place] [address]
== END 2018-08-21 14:15 | disposition home or self-care (01) ==
LOC: D.ER 09:30 → D.CATH 09:30 → D.M2 09:30 → EDSTATUS 10:47 → D.CLR 17:29 → D.M2 18:28 → D.CATH 08-21 14:15
PROVIDERS: Emergency Medicine; Internal Medicine Interventional Cardiology
DX: I21.4 Non-ST elevation (NSTEMI) myocardial infarction (principal); I10 Essential (primary) hypertension; E78.5 Hyperlipidemia, unspecified
CPT/HCPCS: 93458; C9600 ×2

== ENCOUNTER 2019-10-08 21:40 | Inpatient (IN) | payer MEDICARE, BC ==
[~2019-10-08] VITALS: Ht 185.4 cm; Wt 85.0 kg
--- NOTE | ~2019-10-08 | HEMODYNAMI ---
PATIENT:TIFFANIE CESAR MEDICAL RECORD: [id number] : 34 LOCATION:[facility]# [id number] ADMISSION DATE: 10/08/19 Generatedon:10/08/201923:56 Patient name: TIFFANIE CESAR Patient #: [id number] : 1930 Date of study: 10/08/2019 Page: Of Hemodynamic Procedure Report Patient Data Patient Demographics Procedure consent was obtained First Name: TIFFANIE Gender: Male Last Name: ARSENIO : 1930 Patient #: [id number] Age: 89 year(s) Race: SSN: [id number] Additional ID: [id number] Contact details [address]: [address] [place] [address] State: [place] City: [place] Zip code: [address] Past Medical History Allergies Allergen Reaction Date Comments Reported Other allergy 10/08/2019 WASP Admission Admission Data Admission Date: 10/08/2019 Admission Time: 21:40 Arrival Date: 10/08/2019 Arrival Time: 21:40 Admit Source: Emergency Insurance Payor: Medicare department [facility] #: [id number] Weight (lbs.): 193 Weight (kg.): 87.54 Procedure Procedure Types Cath Procedure Diagnostic Procedure [facility] w/Coronaries Sedation Charges Moderate Sedation up to 30 minutes PCI Procedure AMI/SVG/DIRECTOR FRANCHISE SALES PTCA or Stent AMI-BMS/YANICK Initial Hemochron ACT Test Procedure Description Procedure Date Procedure Date: 10/08/2019 Procedure Start Time: 23:00 Procedure End Time: 23:54 Procedure Staff Name Function Teo Ricci MD Performing Physician Destinee Joyce RT Monitor Duyen Jernigan RT Monitor Mabel Bonilla RT Scrub Adriane Randle RN Nurse Procedure Data Cath Procedure Fluoroscopy Diagnostic fluoroscopy Total fluoroscopy Time: time: 16.3 min 16.3 min Diagnostic fluoroscopy Total fluoroscopy dose: dose: 1566 mGy 1566 mGy Contrast Material Contrast Material Type Amount (ml) Isovue 300 99 Entry Location Entry Primary Successful Side Size Upsize Upsize Entry Closure Succes sful Closure Location (Fr) 1 (Fr) 2 (Fr) Remarks Device Remarks Femoral Right 6 Fr Exoseal artery Short Estimated blood loss: 10 ml Diagnostic catheters Device Type Used For End Catheter Placement MULTIPACK JL 4.0 5Fr Procedure catheter MULTIPACK 3DRC 5Fr Procedure catheter Procedure Complications No complications Procedure Medications Medication Administration Route Dosage 0.9% NaCl I.V. 100 ml/hr Oxygen etCO2 Nasal cannula 2 l/min Lidocaine 2% added to field 20 Heparin Flush Bag added to field 2 bags (1000units/500ml NS) Versed I.V. 2 mg Fentanyl I.V. 50 mcg Fentanyl I.V. 50 mcg Heparin Bolus I.V. 8000 units Integrilin (Bolus I.V. 7.9 ml 2mg/ml) Integrilin (Bolus wasted 2.1 ml 2mg/ml) Plavix P.O. 600 mg Hemodynamics Rest Heart Rate: 44 (bpm) Snapshots Pre Cath Intra NCS Post Cath Vital Signs Time Heart Resp SPO2 etCO2 NIBP (mmHg) Rhythm Pain Sedation Rate (ipm) (%) (mmHg) Status Level (bpm) 22:52:26 69 20 98 19.5 142/80(99) NSR 1 (11) 10(A) , Very mild 22:56:44 68 13 97 12 136/80(111) NSR 1 (11) 10(A) , Very mild 23:01:00 66 11 97 12.8 133/78(106) NSR 1 (11) 10(A) , Very mild 23:05:12 69 10 97 12.8 133/78(107) NSR 0 (11) 9(A) , No pain 23:09:26 65 10 96 12.8 125/76(99) NSR 0 (11) 9(A) , No pain 23:13:42 65 11 97 19.5 122/69(98) NSR 0 (11) 9(A) , No pain 23:17:56 63 10 97 20.3 125/72(105) NSR 0 (11) 9(A) , No pain 23:22:12 61 11 97 24.8 122/70(91) NSR 0 (11) 9(A) , No pain 23:26:22 64 13 98 21.8 119/77(106) NSR 0 (11) 9(A) , No pain 23:30:33 62 12 98 10.5 131/75(102) NSR 0 (11) 9(A) , No pain 23:35:30 61 12 96 11.3 122/69(105) NSR 0 (11) 9(A) , No pain 23:39:47 62 11 96 24.8 118/72(100) NSR 0 (11) 9(A) , No pain 23:44:01 60 13 96 11.3 127/68(101) NSR 0 (11) 9(A) , No pain 23:48:19 65 14 98 23.3 121/69(99) NSR 0 (11) 10(A) , No pain 23:52:33 61 17 97 24.1 127/71(103) NSR 0 (11) 10(A) , No pain Medications Time Medication Route Dose Verified Delivered Reason Notes Effectiveness by by 22:49:13 0.9% NaCl I.V. 100 Teo Adriane used for ml/hr Radhames Randle category development manager 22:49:20 Oxygen etCO2 2 Teo Adriane used for Nasal l/min Radhames Randle procedure cannula RN 22:49:24 Lidocaine 2% added 20ml Teo Teo for local to vial Radhames Ricci MD anesthetic field 22:49:28 Heparin Flush added 2 Teo Teo used for Bag to bags Radhames Ricci MD procedure (1000units/500ml field NS) 22:57:26 Versed I.V. 2 mg Teo Adriane for sedation Radhames Randle RN 22:57:38 Fentanyl I.V. 50 Teo Adriane for sedation mcg Radhames Randle RN 23:03:53 Fentanyl I.V. 50 Teo Adriane for sedation mcg Radhames Randle RN 23:08:21 Heparin Bolus I.V. 8000 Teo Adriane for verif ied units Radhames Randle anticoagulation with Dr. LEIGHTON Ricci 23:24:20 Integrilin I.V. 7.9 Teo Adriane for (Bolus 2mg/ml) ml Radhames Randle antiplatelet RN therapy 23:24:31 Integrilin wasted 2.1 Teo Adriane for (Bolus 2mg/ml) ml Radhames Randle antiplatelet RN therapy 23:51:41 Plavix P.O. 600 Teo Forrest for mg Radhames Randle antiplatelet RN therapy Procedure Log Time Note 22:36:32 Informed consent obtained and on chart 22:37:05 Procedure Status Emergent Heart Cath (AMI). 22:37:06 Time tracking: Call back (After hours or weekends) 22:37:15 Plan of Care:Hemodynamics will remain stable., Cardiac rhythm will remain stable., Comfort level will be maintained., Respiratory function will remain adequate., Patient/ family verbilizes understanding of procedure., Procedure tolerated without complication., Recovers from procedure without complications.. 22:37:35 H&P Date Dictated: 10/08/2019 ER History on chart.. 22:40:01 Adriane Randle RN sent for patient. Start room use. 22:45:03 Admit Source: Emergency department 22:45:09 Arrival Date: 10/08/2019 9:40:00 PM 22:45:27 Insurance Payor : Medicare 22:49:13 0.9% NaCl 100 ml/hr I.V. was administered by Adriane Randle RN; used for procedure; Verbal order read back and verified. 22:49:20 Oxygen 2 l/min etCO2 Nasal cannula was administered by Adriane Randle RN; used for procedure; Verbal order read back and verified. 22:49:24 Lidocaine 2% 20ml vial added to field was administered by Teo Ricci MD; for local anesthetic; Verbal order read back and verified. 22:49:28 Heparin Flush Bag (1000units/500ml NS) 2 bags added to field was administered by Teo Ricci MD; used for procedure; Verbal order read back and verified. 22:50:55 Patient Weight : 193 lbs 22:51:02 Patient received from ED to CCL 1 Alert and oriented. Tansferred to table in Supine position. 22:51:03 Warm blankets applied, and ramirez hugger turned on for patient comfort. 22:51:03 Correct patient and procedure confirmed by team. 22:51:03 ECG and BP/O2 sat monitors applied to patient. 22:51:04 Vital chart was started 22:51:08 Rhythm: sinus rhythm 22:51:09 Full Disclosure recording started 22:51:09 Pre-procedure instructions explained to patient. 22:51:10 Pre-op teaching completed and patient verbalized understanding. 22:51:11 Family in waiting room. 22:51:25 Patient allergic to Other allergyWASP 22:51:26 Is patient on blood thinner?No 22:51:27 Patient diabetic? No. 22:51:29 Previous problem with sedation/anesthesia? No ? 22:51:30 Snore? Yes 22:51:32 Sleep apnea? No 22:51:33 Deviated septum? No 22:51:34 Opens mouth fully? Yes 22:51:35 Sticks out tongue? Yes 22:51:38 Airway obstruction? No ? 22:51:39 Dentures? No ? 22:51:43 Pre procedure: right dorsailis pedis pulse 2+ Normal; easily identifiable; not easily obliterated 22:51:47 Patient pain scale 0/10 ?. 22:51:53 IV patent on arrival in right antecubital with 0.9% NaCl at [facility]. 22:54:05 Right groin area was prepped with chlora-prep and draped in sterile fashion 22:54:09 Alarms reviewed by R. N. 22:54:09 Sharps counted by scrub and verified by R.N. 22:54:49 Use device set Femoral Dx 22:54:50 ACIST Syringe (75270) opened to sterile field. 22:54:51 Bag Decanter (2002S) opened to sterile field. 22:54:52 ACIST Hand Control (24973) opened to sterile field. 22:54:52 ACIST Manifold (84913) opened to sterile field. 22:54:55 Tegaderm 4 x 4 (1626W) opened to sterile field. 22:56:03 Medline Cath Pack ([id number]) opened to sterile field. 22:56:04 DIAGNOSTIC Multipack 5Fr catheter set (DG8577) opened to sterile field. 22:56:07 EMERALD Guide Wire (380-446) opened to sterile field. 22:56:19 Final Timeout: patient, procedure, and site verified with staff and physician. All members of the team are in agreement. 22:56:20 --------ALL STOP TIME OUT------ 22:56:21 Right groin site verified by team. 22:56:24 Fire Safety Assessment: A--An alcohol-based skin anteseptic being used preoperatively., C--Open oxygen or nitrous oxide is being used., D--An ESU, laser, or fiber-optic light is being used. 22:56:31 Sedation plan: IV Moderate Sedation Medication:Versed, Fentanyl 22:57:26 Versed 2 mg I.V. was administered by Adriane Randle RN; for sedation; Verbal order read back and verified. 22:57:38 Fentanyl 50 mcg I.V. was administered by Adriane Randle RN; for sedation; Verbal order read back and verified. 22:58:09 SHEATH 6FR [place] (WFT286) opened to sterile field. 22:59:26 Procedure started. 22:59:34 Baseline sample Acquired. 22:59:40 Baseline sample Acquired. 23:00:44 Local anesthetic to right femoral artery with Lidocaine 2% by Teo Ricci MD.INITIAL ACCESS ONLY 23:02:05 A 6 Fr Short sheath was inserted into the Right Femoral artery 23:03:07 A MULTIPACK JL 4.0 5Fr catheter was advanced over the wire and used for Procedure. 23:03:53 Fentanyl 50 mcg I.V. was administered by Adriane Randle RN; for sedation; Verbal order read back and verified. 23:04:28 LCA angiography performed. 23:05:34 Catheter exchanged over wire. 23:05:40 A MULTIPACK 3DRC 5Fr catheter was advanced over the wire and used for Procedure. 23:06:03 RCA angiography performed. 23:06:20 Catheter exchanged over wire. 23:06:40 INFLATOR Merit BasixCompak (YB7712) opened to sterile field. 23:06:41 TUBING High Pressure Extension Tubing (Radhames) (AV7421S) opened to sterile field. 23:06:43 Asahi Minamo 300cm wire opened to sterile field. 23:06:44 GUIDE 6FR XBLAD 4.0 catheter ([id number]) opened to sterile field. 23:08:19 Pre PCI Site: [place] LAD has 100% stenosis. 23:08:21 Heparin Bolus 8000 units I.V. was administered by Adriane Randle RN; for anticoagulation; verified with Dr. Ricci Verbal order read back and verified. 23:08:25 6 Fr XBLAD 4 guide catheter was inserted over the wire 23:11:25 Guide Catheter removed. unable to cannulate vessel. 23:12:22 GUIDE 6FR EBU 3.75 catheter ([id number]) opened to sterile field. 23:13:00 6 Fr EBU 3.75 guide catheter was inserted over the wire 23:15:58 MINAMO 300 wire advanced. 23:17:52 Wire advanced across lesion. 23:21:54 Inflate balloon Inflation number: 1 A EMERGE OTW 2.5 x 20 balloon ([id number]) was prepped and advanced across the Mid LAD , then inflated to 12 JUSTIN for 0:00 (min:sec) . 23:21:59 Inflation number: 2 The EMERGE OTW 2.5 x 20 balloon ([id number]) was reinflated across the Mid LAD , to 12 JUSTIN for 0:00 (min:sec) . 23:24:20 Integrilin (Bolus 2mg/ml) 7.9 ml I.V. was administered by Adriane Randle RN; for antiplatelet therapy; Verbal order read back and verified. 23:24:31 Integrilin (Bolus 2mg/ml) 2.1 ml wasted was administered by Adriane Randle RN; for antiplatelet therapy; Verbal order read back and verified. 23:24:39 Inflation number: 3 The EMERGE OTW 2.5 x 20 balloon ([id number]) was reinflated across the Mid LAD , to 12 JUSTIN for 0:00 (min:sec) . 23:25:24 Inflation number: 4 The EMERGE OTW 2.5 x 20 balloon ([id number]) was reinflated across the Mid LAD , to 13 JUSTIN for 0:00 (min:sec) . 23:25:28 Balloon removed over the wire. 23:31:34 Place stent Inflation Number: 5 A NIMISHA OTW 2.5 x 18 stent ([id number]) was prepped and advanced across the Mid LAD . The stent was deployed at 14 JUSTIN for 0:00 (min:sec) . 23:32:58 Inflation number: 6 The stent balloon was then re-inflated across the Mid LAD to 15 JUSTIN for 0:00 (min:sec) . 23:33:04 Stent catheter was removed intact over wire. 23:43:25 Place stent Inflation Number: 7 A NIMISHA OTW 2.75 x 22 stent ([id number]) was prepped and advanced across the Mid LAD . The stent was deployed at 13 JUSTIN for 0:00 (min:sec) . 23:44:29 Stent catheter was removed intact over wire. 23:44:30 Wire removed. 23:44:30 Guide catheter removed. 23:44:36 EXOSEAL 6Fr (EX600) opened to sterile field. 23:46:03 Sheath removed intact; hemostasis achieved with Exoseal to the Right Femoral artery. 23:46:05 Procedure ended.(Physican Out) 23:46:22 Fluoroscopy time 16.30 minutes. 23:46:37 Fluoroscopy dose: 1566 mGy 23:46:37 Flurop Dose total: 1566 23:46:45 Dose Area Product 05452 mGy/cm. 23:47:02 Contrast amount:Isovue 300 99ml. 23:47:04 Maximum allowable dose exceeded? No. 23:47:06 Sharps counted by scrub and verified by R.N. 23:47:14 Post-op/insertion site Right Femoral artery dressed using a 4 x 4 and Tegaderm. 23:47:22 Post-procedure physical assessment completed. ASA score P 2 - A patient with mild systemic disease as per Teo Ricci MD. 23:47:47 Post procedure rhythm: sinus rhythm 23:47:52 Estimated blood loss: 10 ml 23:47:53 Post procedure instruction explained to patient.Patient verbalizes understanding. 23:47:54 Patient needs reinforcement of post procedure teaching. 23:49:11 Procedure type changed to Cath procedure, Diagnostic procedure, C, [facility] w/Coronaries, Sedation Charges, Moderate Sedation up to 30 minutes, PCI procedure, AMI/SVG/DIRECTOR FRANCHISE SALES PTCA or Stent, AMI-BMS/YANICK Initial, Hemochron ACT Test 23:49:41 Procedure and supply charges have been captured, reviewed, submitted and are correct. 23:49:44 Procedure Complication : No complications 23:49:55 [facility] Findings: MVD- PCI performed (see procedure note) 23:49:57 Operative report dictated upon procedure completion. 23:49:58 See physician's report for complete and final results. 23:50:01 Report given to ICU. 23:50:03 Patient transfered to ICU with Bed. 23:51:41 Plavix 600 mg P.O. was administered by Adriane Randle RN; for antiplatelet therapy; Verbal order read back and verified. 23:52:08 ACT drawn and resulted at >400- out of range seconds. (normal therapeutic range 180-240 seconds). 23:52:55 ACC-PCI Only Patient was given prescriptions, or instructed by Teo Ricci MD to start/continue the following medications upon discharge: Plavix 23:54:44 Vital chart was stopped 23:54:47 Procedure ended. 23:54:47 Full Disclosure recording stopped 23:54:52 End room use (Document Last) 23:54:52 End room use (Document Last) 23:55:40 End room use (Document Last) Intervention Summary Intervention Notes Time ActionType Lesion and Equipment Action# Pressure Duration Attributes Used 23:21:54 Inflate Mid LAD EMERGE OTW 1 12 00:00 balloon 2.5 x 20 balloon ([id number]) 23:21:59 Reinflate Mid LAD EMERGE OTW 2 12 00:00 balloon 2.5 x 20 balloon ([id number]) 23:24:39 Reinflate Mid LAD EMERGE OTW 3 12 00:00 balloon 2.5 x 20 balloon ([id number]) 23:25:24 Reinflate Mid LAD EMERGE OTW 4 13 00:00 balloon 2.5 x 20 balloon ([id number]) 23:31:34 Place stent Mid LAD NIMISHA OTW 2.5 5 14 00:00 x 18 stent ([id number]) 23:32:58 Reinflate Mid LAD NIMISHA OTW 2.5 6 15 00:00 stent x 18 stent balloon ([id number]) 23:43:25 Place stent Mid LAD NIMISHA OTW 2.75 7 13 00:00 x 22 stent ([id number]) Device Usage Item Name Manufacture Quantity Catalog Number Hospital Part Current M inimal Lot# / Charge Number Stock Stock Serial# Code ACIST Syringe Acist 1 40614 951344 289048 623990 2 0 (21069) Medical Systems Inc Bag Decanter Microtek 1 715795 05088 391889 5 () Medical Inc. ACIST Hand Acist 1 19761 719258 461599 101591 5 Control Medical (63282) Systems Inc ACIST Acist 1 87907 583559 305980 395909 5 Manifold Medical (62406) Systems Inc Tegaderm 4 x 3M 1 1626W 334142 784604 174430 5 4 (1626W) Medline Cath Medline 1 [id number] 012797 42231 985560 5 Pack ([id number]) DIAGNOSTIC Cardinal 1 MF1922 778404 87030 683923 3 0 Multipack 5Fr Health catheter set (AS1570) EMERALD Guide Cardinal 1 502-455 564718 171453 479024 5 Wire Health (502-455) SHEATH 6FR Terumo 1 RXR919 108981 916287 663688 4 0 [place] (YFE263) MULTIPACK JL Cardinal 1 225048 5 4.0 5Fr Health catheter MULTIPACK Cardinal 1 967035 5 3DRC 5Fr Health catheter INFLATOR Merit 1 YI9136 044764 386669 692087 1 5 Front Up Medical BasixCompak (UB1262) TUBING High Merit 1 [id number] 302951 48112 029887 1 0 Pressure Medical Extension Tubing (Ricci) (MG6330N) [facility] Intecc 1 [id number] 571986 7186651 759843 0 300cm wire GUIDE 6FR Cardinal 1 95063209 471979 879716 578931 3 XBLAD 4.0 Health catheter (20559990) GUIDE 6FR EBU Medtronic 1 [id number] 311481 49156 222415 1 3.75 catheter ([id number]) EMERGE OTW Westhoff 1 [id number] 658840 773199 648862 5 [id number] 2.5 x 20 Scientific balloon ([id number]) NIMISHA OTW 2.5 Medtronic 1 [id number] 412549 56478 024672 5 [id number] x 18 stent ([id number]) NIMISHA OTW 2.75 Medtronic 1 [id number] 617353 1305440 348826 5 [id number] x 22 stent ([id number]) EXOSEAL 6Fr Cardinal 1 EX600 287222 246208 920778 1 0 (EX600) Health Signature Audit [place] Stage Time Signature Unsigned Intra-Procedure 10/08/2019 Destinee Joyce 11:55:40 PM RT(R) Intra-Procedure 10/08/2019 Adriane Randle 11:56:06 PM RN Intra-Procedure 10/08/2019 Teo Ricci MD 11:56:52 PM [facility] [address] [facility] [place] [address]
[~2019-10-08 21:40] MED LIST: BAYER CHEWABLE81 MG PO; LISINOPRIL5 MG PO; NORVASC10 MG PO; PLAVIX75 MG PO; SYNTHROID175 MCG PO; VITAMIN B650 MG PO; ZETIA10 MG PO
--- NOTE | 2019-10-08 22:13 | NUR ---
CONSENTS FOR PARTS SALES MANAGER OBTAINED. PT CHANGED INTO GOWN. BELONGINGS TO JYOTSNA HART.
--- NOTE | 2019-10-08 22:25 | NUR ---
DR BORREGO HERE TO SEE PATIENT.
[2019-10-08 22:36] LABS: HEMATOCRIT 44.3 % (42.0-54.0); HEMOGLOBIN 15.1 g/dL (13.5-17.5); MCH 32.3 pg (26.0-34.0); MCHC 34.1 g/dL (31.0-37.0); MCV 94.9 fL (80.0-100.0); MEAN PLATELET VOLUME 9.4 fL (7.4-10.4); RBC 4.67 10x6/uL (4.20-6.10); WBC 9.3 10x3/uL (4.8-10.8)
[2019-10-08 22:40] LABS: INR 1.1 (0.85-1.17); PROTIME 14.1 SECONDS (11.6-15.0)
--- NOTE | 2019-10-08 22:40 | NUR ---
DR BORREGO HERE. STATES TO HOLD HEPARIND DRIP AT THIS TIME. FRAMING CONSULTANT HERE TO PICK PATIENT.
[2019-10-08 22:41] LABS: APTT 67.6 SECONDS (22.8-39.4)
--- NOTE | 2019-10-08 22:44 | NUR ---
TO FITNESS SPECIALIST.
[2019-10-08 22:56] LABS: BASOPHILS 0.3 % (0-2); EOSINOPHILS 2.7 % (0-7); HEMATOCRIT 44.2 % (42.0-54.0); HEMOGLOBIN 15.1 g/dL (13.5-17.5); IMMATURE GRANULOCYTES 0.2 % (0-5); LYMPHOCYTES 12.2 % (15-50); MCH 32.4 pg (26.0-34.0); MCHC 34.2 g/dL (31.0-37.0); MCV 94.8 fL (80.0-100.0); MEAN PLATELET VOLUME 9.3 fL (7.4-10.4); NEUTROPHILS 78.6 % (40-80); PLATELET COUNT 209 10x3/uL (130-400); RBC 4.66 10x6/uL (4.20-6.10); WBC 9.3 10x3/uL (4.8-10.8)
[2019-10-08 23:02] LABS: CKMB 5.8 U/L (0.0-3.6)
[2019-10-08 23:12] LABS: ANION GAP 12.6 mmol/L (8-16); CALCIUM 9.1 mg/dL (8.5-10.1); CREATININE - SERUM 2.2 mg/dL (0.6-1.3); POTASSIUM - SERUM 4.6 mmol/L (3.5-5.1)
[2019-10-08 23:16] LABS: TROPONIN-I 0.367 ng/mL (0.000-0.060)
[2019-10-08 23:28] LABS: CHOL - HDL RATIO 3.1 ratio (2.3-4.9); LDL-HDL RATIO 1.9 ratio (1.5-3.5)
[2019-10-09] VITALS (29 sets, daily range): BP systolic 95–139; BP diastolic 66–96; Ht 185.4 cm; Wt 85.0 kg
--- NOTE | 2019-10-09 00:10 | NUR ---
Patient arrived to unit via bed with specialist employee labor relations RN at bedside. Alert and oriented x4. Monitoring equipment on and functioning properly. Normal sinus rhythm shown on groundwater monitoring technician. Denies chest pain at this time. 20g PIV noted to the Rt A/C infusing NS. Rt groin dressing is CDI. No s/s of hematoma at groin site. Rt pedal pulse palpable. Bed locked and in low position. Call light within reach. Per patient report; 100% occulsion of LAD and patient recieved stents x2.
--- NOTE | 2019-10-09 02:40 | NUR ---
Patient continues to lay in supine position. Rt groin remains soft and without s/s of hematoma. Dressing CDI. Rt pedal pulse remains palpable. Sensations intact. Bed locked and in low position. Call light within reach. Denies needs at this time.
[2019-10-09 04:09] LABS: BASOPHILS 0.4 % (0-2); EOSINOPHILS 2.8 % (0-7); HEMATOCRIT 40.1 % (42.0-54.0); HEMOGLOBIN 13.6 g/dL (13.5-17.5); IMMATURE GRANULOCYTES 0.3 % (0-5); LYMPHOCYTES 16.9 % (15-50); MCH 32.4 pg (26.0-34.0); MCHC 33.9 g/dL (31.0-37.0); MCV 95.5 fL (80.0-100.0); MEAN PLATELET VOLUME 9.2 fL (7.4-10.4); MONOCYTES 11.2 % (2-11); NEUTROPHILS 68.4 % (40-80); RDW 12.9 % (11.5-14.5); WBC 7.5 10x3/uL (4.8-10.8)
[2019-10-09 04:15] LABS: PLATELET COUNT 166 10x3/uL (130-400)
--- NOTE | 2019-10-09 04:22 | NUR ---
Rt groin remains soft and without s/s of hematoma. Rt pedal pulse is palpable. HOB to 10 degrees at this time. Bed locked and in low position. Call light within reach. Denies any pain. Will continue to monitor.
[2019-10-09 04:41] LABS: ALBUMIN 3.1 g/dL (3.4-5.0); ANION GAP 12.1 mmol/L (8-16); BILIRUBIN - TOTAL 0.37 mg/dL (0.2-1.3); CALCIUM 8.6 mg/dL (8.5-10.1); CARBON DIOXIDE 25.3 mmol/L (21.0-32.0); CREATININE - SERUM 1.8 mg/dL (0.6-1.3); MAGNESIUM - SERUM 1.8 mg/dL (1.8-2.4); PHOSPHOROUS 3.6 mg/dL (2.5-4.9); POTASSIUM - SERUM 4.4 mmol/L (3.5-5.1); PROTEIN - SERUM 6.1 g/dL (6.4-8.2); THYROID STIMULATING HORMONE 0.77 uIU/mL (0.36-3.74)
--- NOTE | 2019-10-09 07:15 | NUR ---
PT REPORT RECEIVED FROM HARVEST WORKER FIELD CROP NURSE. NO ACUTE SIGNS OF DISTRESS NOTED. PT UP TO BEDSIDE COMMODE. HAD BM. TOLERATED TRANSITION BACK TO BED WELL. WILL CONTINUE TO MONITOR
--- NOTE | 2019-10-09 14:05 | NUR ---
PT HAD ANOTHER BM. FAMILY AT BEDSIDE. NO COMPLAINTS NOTED AT THIS TIME. WILL CONTINUE TO MONITOR
--- NOTE | 2019-10-09 20:00 | NUR ---
PT. IN BED, AAO X 3, AT BEDSIDE, RESP EVEN AND UNLABORED, NO DISTRESS NOTED, DRSG TO RIGHT GROIN CLEAN DRY AND INTACT AT THIS TIME. NO CONCERNS OR WANTS NOTED AT THIS TIME.
[2019-10-10] VITALS (12 sets, daily range): BP systolic 104–138; BP diastolic 63–80
[2019-10-10 04:19] LABS: BASOPHILS 0.4 % (0-2); EOSINOPHILS 5.8 % (0-7); HEMATOCRIT 41.3 % (42.0-54.0); IMMATURE GRANULOCYTES 0.1 % (0-5); MCH 32.4 pg (26.0-34.0); MCHC 33.9 g/dL (31.0-37.0); MCV 95.6 fL (80.0-100.0); MEAN PLATELET VOLUME 9.3 fL (7.4-10.4); MONOCYTES 9.9 % (2-11); NEUTROPHILS 61.8 % (40-80); PLATELET COUNT 174 10x3/uL (130-400); RBC 4.32 10x6/uL (4.20-6.10); RDW 13.1 % (11.5-14.5); WBC 7.3 10x3/uL (4.8-10.8)
[2019-10-10 04:54] LABS: ALBUMIN 3.3 g/dL (3.4-5.0); ANION GAP 12.7 mmol/L (8-16); BILIRUBIN - TOTAL 0.45 mg/dL (0.2-1.3); CALCIUM 8.5 mg/dL (8.5-10.1); CARBON DIOXIDE 25.5 mmol/L (21.0-32.0); CREATININE - SERUM 1.8 mg/dL (0.6-1.3); MAGNESIUM - SERUM 1.8 mg/dL (1.8-2.4); PHOSPHOROUS 3.3 mg/dL (2.5-4.9); POTASSIUM - SERUM 4.2 mmol/L (3.5-5.1); PROTEIN - SERUM 6.6 g/dL (6.4-8.2)
--- NOTE | 2019-10-10 07:00 | NUR ---
PT REPORT RECEIVED FROM TRAVEL REGISTERED NURSE ICU NURSE. NO ACUTE SIGNS OF DISTRESS NOTED. SHIFT ASSESSMENT COMPLETED. WILL CONTINUE TO MONITOR
--- NOTE | 2019-10-10 10:10 | NUR ---
TEVIN REEDER IN ROOM. STATED THAT PT IS GOING TO BE DISCHARGED TODAY. AWAITING ORDERS. WILL CONTINUE TO MONITOR
[2019-10-10] MEDS ORDERED: COREG 3.1253.125 MG PO (11:45)
--- NOTE | 2019-10-10 14:02 | NUR ---
PT WHEELED OUT TO CAR DRIVEN BY DAUGHTER. PT TOLERATED WELL.
--- NOTE | 2019-10-10 17:18 | MORECARE ---
CASE MANAGEMENT DISCHARGE SUMMARY PATIENT: TIFFANIE CESAR UNIT: [id number] ADM DATE: 10/08/19 AGE: 89 : 32 SEX: M ROOM/BED: D.2304 AUTHOR: SARITA HEARD PHYSICIAN: REFERRING PHYSICIAN: DELILAH RODRÍGUEZ MD DATE OF SERVICE: 10/10/19 Discharge Plan Patient Name: TIFFANIE CESAR [facility] [facility] 1930 Planned Disposition: Home Anticipated Discharge Date: Discharge Date: 10/10/2019 Expected LOS: Initial Reviewer: [email or web address] Initial Review Date: 10/10/2019 Generated: 10/10/19 6:18 pm DCPIA - Discharge Planning Initial Assessment Updated by [email or web address]: Gi Peter on 10/10/19 5:17 pm * Is the patient Alert and Oriented? Yes * How many steps to enter\exit or inside your home? * PCP [facility] * Pharmacy [facility] [place] * Preadmission Environment Home with Family * ADLs Independent * Other Equipment CRUTCHES, CANE * List name and contact numbers for known caregivers / representatives who currently or will assist patient after discharge: MITZI CESAR - SPOUSE - [phone] * Verbal permission to speak to the caregivers and representatives has been obtained from the patient. Yes * Community resources currently utilized None * Additional services required to return to the preadmission environment? No * Can the patient safely return to the preadmission environment? Yes * Has this patient been hospitalized within the prior 30 days at any hospital? No Patient Name: TIFFANIE CESAR Page 17528 at 1718 All edits/amendments must be made on the electronic document DICTATION DATE: 10/10/191717 RN MANAGED CARE: KANE 10/10/191717 RPT#: [id number] DC DATE:10/10/19 STATUS: DIS IN [facility] [address] [place] [address] END OF REPORT
--- NOTE | 2019-10-10 17:26 | MORECARE ---
CASE MANAGEMENT DISCHARGE SUMMARY PATIENT: TIFFANIE CESAR UNIT: [id number] ADM DATE: 10/08/19 AGE: 89 : 32 SEX: M ROOM/BED: D.2304 AUTHOR: ORQUIDEA,DOC PHYSICIAN: REFERRING PHYSICIAN: DELILAH RODRÍGUEZ MD DATE OF SERVICE: 10/10/19 Discharge Plan Patient Name: TIFFANIE CESAR Facility: [facility]:[place] : 1930 Planned Disposition: Home Anticipated Discharge Date: Discharge Date: 10/10/2019 Expected LOS: Initial Reviewer: [email or web address] Initial Review Date: 10/10/2019 Generated: 10/10/19 6:26 pm Comments DCP- Discharge Planning Updated by [email or web address]: Gi Peter on 10/10/19 4:[address] Patient Name: TIFFANIE CESAR Admission Status: ER Accout number: [id number] Admission Date: 10-08-2019 : 1930 Admission Diagnosis: Attending: DELILAH RODRÍGUEZ Current LOS: 2 Anticipated DC Date: Planned Disposition: Home Primary Insurance: MEDICARE A & B Discharge Planning Comments: CM met with patient at bedside after explaining CM role and obtaining verbal consent. Patient lives at home with his Pamella where he is independent with his care and plans to return there upon discharge. Patient feels this would be a safe discharge. CM discussed availability / needs of home health and medical equipment. Patient denies any discharge needs at this time. Patient states he will have his family drive him home upon discharge. CM will continue to follow and assist as needed with discharge planning / needs. Joiner Helper: Gi Peter DCPIA - Discharge Planning Initial Assessment Updated by [email or web address]: Gi Peter on 10/10/19 5:17 pm * Is the patient Alert and Oriented? Yes * How many steps to enter\exit or inside your home? * [facility] * Pharmacy [facility] [place] * Preadmission Environment Home with Family * ADLs Independent * Other Equipment CRUTCHES, CANE * List name and contact numbers for known caregivers / representatives who currently or will assist patient after discharge: PAMELLA CESAR - SPOUSE - [phone] * Verbal permission to speak to the caregivers and representatives has been obtained from the patient. Yes * Community resources currently utilized None * Additional services required to return to the preadmission environment? No * Can the patient safely return to the preadmission environment? Yes * Has this patient been hospitalized within the prior 30 days at any hospital? No Last DP export: 10/10/19 4:18 p Patient Name: TIFFANIE CESAR Page 11949 at 1726 All edits/amendments must be made on the electronic document DICTATION DATE: 10/10/191725 BATTERY TESTER FIELD: KANE 10/10/191725 RPT#: [id number] DC DATE:10/10/19 STATUS: DIS IN [facility] [address] [place] [address] END OF REPORT
== END 2019-10-10 14:08 | disposition home or self-care (01) | DRG 247 ==
LOC: D.ER 21:40 → D.ICU 22:35
PROVIDERS: Family Medicine; Internal Medicine Cardiovascular Disease; ADMIT Internal Medicine Nephrology; ATTEND Internal Medicine Nephrology
PROC: B2151ZZ Fluoroscopy of Left Heart using Low Osmolar Contrast (ICD-10-PCS; 2019-10-08)
PROC: 4A023N7 Measurement of Cardiac Sampling and Pressure, Left Heart, Percutaneous Approach (ICD-10-PCS; 2019-10-08)
PROC: 027035Z Dilation of Coronary Artery, One Artery with Two Drug-eluting Intraluminal Devices, Percutaneous Approach (ICD-10-PCS; principal; 2019-10-08 22:40)
PROC: B2111ZZ Fluoroscopy of Multiple Coronary Arteries using Low Osmolar Contrast (ICD-10-PCS; 2019-10-08 22:40)
DX: I21.09 ST elevation (STEMI) myocardial infarction involving other coronary artery of anterior wall (principal); N17.9 Acute kidney failure, unspecified; I10 Essential (primary) hypertension; E78.5 Hyperlipidemia, unspecified; I25.10 Atherosclerotic heart disease of native coronary artery without angina pectoris; E03.9 Hypothyroidism, unspecified; I25.5 Ischemic cardiomyopathy

== ENCOUNTER 2019-10-12 14:08 | Inpatient (IN) | payer MEDICARE, BC ==
[~2019-10-12] VITALS: Ht 185.4 cm; Wt 85.7 kg
[~2019-10-12 14:08] MED LIST changes: +COREG 3.1253.125 MG PO
[2019-10-12 14:39] LABS: BASOPHILS 0.5 % (0-2); EOSINOPHILS 7.1 % (0-7); HEMATOCRIT 43.7 % (42.0-54.0); HEMOGLOBIN 14.8 g/dL (13.5-17.5); IMMATURE GRANULOCYTES 0.5 % (0-5); LYMPHOCYTES 19.9 % (15-50); MCH 32.7 pg (26.0-34.0); MCHC 33.9 g/dL (31.0-37.0); MCV 96.7 fL (80.0-100.0); MEAN PLATELET VOLUME 9.6 fL (7.4-10.4); MONOCYTES 8.7 % (2-11); NEUTROPHILS 63.3 % (40-80); PLATELET COUNT 195 10x3/uL (130-400); RBC 4.52 10x6/uL (4.20-6.10); RDW 13.3 % (11.5-14.5); WBC 7.8 10x3/uL (4.8-10.8)
[2019-10-12 14:50] LABS: APTT 29.8 SECONDS (22.8-39.4); PROTIME 13.1 SECONDS (11.6-15.0)
[2019-10-12 14:54] LABS: CALC OSMOLALITY 284 mosm/kg (275-300); CALCIUM 8.9 mg/dL (8.5-10.1); CARBON DIOXIDE 23.5 mmol/L (21.0-32.0); CHLORIDE - SERUM 105 mmol/L (98-107); CREATININE - SERUM 1.6 mg/dL (0.6-1.3); GLUCOSE 99 mg/dL (74-106); POTASSIUM - SERUM 4.9 mmol/L (3.5-5.1); SODIUM 140 mmol/L (136-145); UREA NITROGEN 30 mg/dL (7-18); eGFR NON AFRICAN AMERICAN 44 mL/min (90-120)
[2019-10-12 15:00] VITALS: BP 127/69
[2019-10-12 15:17] LABS: ALBUMIN 3.9 g/dL (3.4-5.0); ALKALINE PHOSPHATASE 93 U/L (30-120); ALT (SGPT) 51 U/L (10-68); BILIRUBIN - TOTAL 0.48 mg/dL (0.2-1.3); CKMB 7.8 U/L (0.0-3.6); CREATINE KINASE 282 UL (21-232); PROTEIN - SERUM 7.1 g/dL (6.4-8.2)
[2019-10-12 15:23] LABS: TROPONIN-I 15.055 ng/mL (0.000-0.060)
--- NOTE | 2019-10-12 16:26 | NUR ---
TRANSFER FROM ER BY STRETCHER. OREINTED TO ROOM. CALL LIGHT IN REACH. WILL CONT. PLAN OF CARE.
[2019-10-12 17:05] VITALS: BP 121/74; BMI 25.2
--- NOTE | 2019-10-12 19:30 | NUR ---
REPORT RECIEVED AND INITIAL ROUNDS COMPLETED. PT RESTING IN BED. NO DISTRESS.
[2019-10-12 20:00] VITALS: BP 109/60
[2019-10-12 20:15] LABS: CKMB 6.7 U/L (0.0-3.6); CREATINE KINASE 220 UL (21-232)
[2019-10-12 20:17] LABS: TROPONIN-I 13.404 ng/mL (0.000-0.060)
--- NOTE | 2019-10-12 20:50 | NUR ---
PAGE TO DEBBIE DAMON APN REGARDING ELEVATED DDIMER 2.57. AWAITING RETURN CALL.
--- NOTE | 2019-10-12 22:16 | NUR ---
RETURN CALL FROM DEBBIE DAMON [facility]N. REPORTED ELEVATED DDIMMER 2.57. ORDERS RECIEVED FOR STAT CTA WITH PE PROTOCOL AND TO INITIATE LOVENOX 40MG SC DAILY.
--- NOTE | 2019-10-12 22:44 | NUR ---
PT TAKEN TO RADIOLOGY PER WHEELCHAIR AFTER NEW ORDERS RECIEVED FRO CTA PER PROTOCOL.
[2019-10-13] VITALS: BP 111/68
[2019-10-13 02:52] LABS: BASOPHILS 0.7 % (0-2); EOSINOPHILS 8.8 % (0-7); HEMATOCRIT 37.2 % (42.0-54.0); HEMOGLOBIN 12.6 g/dL (13.5-17.5); IMMATURE GRANULOCYTES 0.3 % (0-5); LYMPHOCYTES 22.2 % (15-50); MCH 32.7 pg (26.0-34.0); MCHC 33.9 g/dL (31.0-37.0); MCV 96.6 fL (80.0-100.0); MEAN PLATELET VOLUME 9.3 fL (7.4-10.4); MONOCYTES 9.8 % (2-11); NEUTROPHILS 58.2 % (40-80); PLATELET COUNT 167 10x3/uL (130-400); RBC 3.85 10x6/uL (4.20-6.10); RDW 13.1 % (11.5-14.5); WBC 6.1 10x3/uL (4.8-10.8)
[2019-10-13 03:18] LABS: ALBUMIN 3.1 g/dL (3.4-5.0); ALKALINE PHOSPHATASE 77 U/L (30-120); ALT (SGPT) 39 U/L (10-68); BILIRUBIN - TOTAL 0.37 mg/dL (0.2-1.3); CALC OSMOLALITY 284 mosm/kg (275-300); CALCIUM 8.6 mg/dL (8.5-10.1); CARBON DIOXIDE 27.6 mmol/L (21.0-32.0); CHLORIDE - SERUM 106 mmol/L (98-107); CKMB 4.9 U/L (0.0-3.6); CREATINE KINASE 190 UL (21-232); CREATININE - SERUM 1.6 mg/dL (0.6-1.3); GLUCOSE 105 mg/dL (74-106); MAGNESIUM - SERUM 1.9 mg/dL (1.8-2.4); POTASSIUM - SERUM 4.1 mmol/L (3.5-5.1); PROTEIN - SERUM 6.3 g/dL (6.4-8.2); SODIUM 140 mmol/L (136-145); UREA NITROGEN 29 mg/dL (7-18); eGFR NON AFRICAN AMERICAN 44 mL/min (90-120)
[2019-10-13 03:19] LABS: TROPONIN-I 14.484 ng/mL (0.000-0.060)
[2019-10-13 04:00] VITALS: BP 103/64
[2019-10-13 09:36] LABS: CKMB 4.4 U/L (0.0-3.6); CREATINE KINASE 180 UL (21-232)
[2019-10-13 09:39] LABS: TROPONIN-I 11.532 ng/mL (0.000-0.060)
[2019-10-13 10:04] VITALS: BP 108/58
[2019-10-13 13:48] VITALS: BP 115/58
[2019-10-13 17:38] VITALS: BP 105/71
--- NOTE | 2019-10-13 19:30 | NUR ---
REPORT RECIEVED AND INITIAL ROUNDS COMPLETED. PT RESTING IN BED WITH AT BEDSIDE. NO DISTRESS. REVIEWED CURRENT PLAN OF CARE. PT HOPING HE IS DOING WELL ENOUGH TO GO HOME TOMORROW.
[2019-10-13 20:00] VITALS: BP 114/63
--- NOTE | 2019-10-13 23:30 | NUR ---
PT BACK FROM RADIOLOGY. IN [facility].
[2019-10-14] VITALS: BP 131/65
[2019-10-14 04:00] VITALS: BP 107/63
[2019-10-14 05:02] LABS: BASOPHILS 0.7 % (0-2); HEMATOCRIT 38.5 % (42.0-54.0); HEMOGLOBIN 13.1 g/dL (13.5-17.5); IMMATURE GRANULOCYTES 0.3 % (0-5); LYMPHOCYTES 20.8 % (15-50); MCH 32.4 pg (26.0-34.0); MCV 95.3 fL (80.0-100.0); MEAN PLATELET VOLUME 9.3 fL (7.4-10.4); MONOCYTES 10.2 % (2-11); PLATELET COUNT 180 10x3/uL (130-400); RBC 4.04 10x6/uL (4.20-6.10); WBC 6.1 10x3/uL (4.8-10.8)
[2019-10-14 05:17] LABS: ANION GAP 13.8 mmol/L (8-16); CALCIUM 8.7 mg/dL (8.5-10.1); CARBON DIOXIDE 26.9 mmol/L (21.0-32.0); CREATININE - SERUM 1.7 mg/dL (0.6-1.3); MAGNESIUM - SERUM 1.8 mg/dL (1.8-2.4); POTASSIUM - SERUM 3.7 mmol/L (3.5-5.1)
[2019-10-14 11:00] VITALS: BP 120/61
--- NOTE | 2019-10-14 13:59 | NUR ---
RECEIVED PT IN BED AAOX4 RESP UNLABORED SKIN W/D COLOR WNL DENIES ANY PAIN OR NEEDS AT THIS TIME
[2019-10-14 14:17] VITALS: BP 127/61; Ht 185.4 cm; Wt 85.7 kg
[2019-10-14] MEDS ORDERED: LASIX40 MG PO (16:20)
--- NOTE | 2019-10-14 16:45 | MORECARE ---
CASE MANAGEMENT DISCHARGE SUMMARY PATIENT: TIFFANIE CESAR UNIT: [id number] ADM DATE: 10/13/19 AGE: 89 : 32 SEX: M ROOM/BED: D.2114 AUTHOR: SARITA HEARD PHYSICIAN: REFERRING PHYSICIAN: DELILAH RODRÍGUEZ MD DATE OF SERVICE: 10/14/19 Discharge Plan Patient Name: TIFFANIE CESAR Facility: [facility]:[place] : 1930 Planned Disposition: Anticipated Discharge Date: Discharge Date: Expected LOS: Initial Reviewer: [email or web address] Initial Review Date: 10/12/2019 Generated: 10/14/19 5:44 pm DCPIA - Discharge Planning Initial Assessment Updated by [email or web address]: Christie [place] on 10/14/19 4:44 pm * Is the patient Alert and Oriented? Yes * How many steps to enter\exit or inside your home? 0/0 * PCP [facility]EL * Pharmacy [facility] * Preadmission Environment Home with Family * ADLs Independent * Equipment Cane Crutch Elevated [place] Seat * List name and contact numbers for known caregivers / representatives who currently or will assist patient after discharge: MITZI TUCKER [phone] * Verbal permission to speak to the caregivers and representatives has been obtained from the patient. Yes * Community resources currently utilized None * Additional services required to return to the preadmission environment? Yes * Can the patient safely return to the preadmission environment? Yes * Has this patient been hospitalized within the prior 30 days at any hospital? Yes Coverage Notice Reviewer: [id number] Pastor Pizarro Notice Issued Date-Time: 10/13/2019 15:49 Notice Type: Medicare Outpatient Observation Notice Notice Delivered To: Patient Relationship to Patient: Print Producer Name: Delivery Method: HAND - Hand Delivered Rosalba Days: Prior Verbal Notification: Recipient Understood Notice: Yes Recipient Signature: Yes Med Rec Note Co-signed by Attending: Coverage Notice Comment: Patient Name: TIFFANIE CESAR Page [id number] at 1645 All edits/amendments must be made on the electronic document DICTATION DATE: 10/14/191643 COLLEGE PROFESSOR: KANE 10/14/191643 RPT#: [id number] DC DATE: STATUS: ADM IN [facility] [address] [place] [address] END OF REPORT
--- NOTE | 2019-10-14 17:14 | MORECARE ---
CASE MANAGEMENT DISCHARGE SUMMARY PATIENT: TIFFANIE CESAR UNIT: [id number] ADM DATE: 10/13/19 AGE: 89 : 32 SEX: M ROOM/BED: D.2114 AUTHOR: SARITA HEARD PHYSICIAN: REFERRING PHYSICIAN: DELILAH RODRÍGUEZ MD DATE OF SERVICE: 10/14/19 Discharge Plan Patient Name: TIFFANIE CESAR Facility: [facility]:[place] : 1930 Planned Disposition: Anticipated Discharge Date: Discharge Date: Expected LOS: Initial Reviewer: [email or web address] Initial Review Date: 10/12/2019 Generated: 10/14/19 6:14 pm DCPIA - Discharge Planning Initial Assessment Updated by [email or web address]: Christie [place] on 10/14/19 4:44 pm * Is the patient Alert and Oriented? Yes * How many steps to enter\exit or inside your home? 0/0 * PCP [facility]EL * Pharmacy [facility] * Preadmission Environment Home with Family * ADLs Independent * Equipment Cane Crutch Elevated [place] Seat * List name and contact numbers for known caregivers / representatives who currently or will assist patient after discharge: MITZI TUCKER [phone] * Verbal permission to speak to the caregivers and representatives has been obtained from the patient. Yes * Community resources currently utilized None * Additional services required to return to the preadmission environment? Yes * Can the patient safely return to the preadmission environment? Yes * Has this patient been hospitalized within the prior 30 days at any hospital? Yes External Providers External Provider: Anat Next Contact Date: Service Request Date: Service Type: Resolution: Reviewer: Comments: Coverage Notice Reviewer: [id number] Pastor Pizarro Notice Issued Date-Time: 10/13/2019 15:49 Notice Type: Medicare Outpatient Observation Notice Notice Delivered To: Patient Relationship to Patient: Traffic Control Supervisor Name: Delivery Method: HAND - Hand Delivered Rosalba Days: Prior Verbal Notification: Recipient Understood Notice: Yes Recipient Signature: Yes Med Rec Note Co-signed by Attending: Coverage Notice Comment: Last DP export: 10/14/19 3:45 p Patient Name: TIFFANIE CESAR Page [id number] at 1714 All edits/amendments must be made on the electronic document DICTATION DATE: 10/14/191713 MANAGER BALANCE: KANE 10/14/191713 RPT#: [id number] DC DATE: STATUS: ADM IN [facility] [address] [place] [address] END OF REPORT
--- NOTE | 2019-10-14 17:22 | MORECARE ---
CASE MANAGEMENT DISCHARGE SUMMARY PATIENT: TIFFANIE CESAR UNIT: [id number] ADM DATE: 10/13/19 AGE: 89 : 32 SEX: M ROOM/BED: D.2114 AUTHOR: SARITA HEARD PHYSICIAN: REFERRING PHYSICIAN: DELILAH RODRÍGUEZ MD DATE OF SERVICE: 10/14/19 Discharge Plan Patient Name: TIFFANIE CESAR Facility: [facility]:[place] : 1930 Planned Disposition: Anticipated Discharge Date: Discharge Date: Expected LOS: Initial Reviewer: [id number] Initial Review Date: 10/12/2019 Generated: 10/14/19 6:22 pm DCPIA - Discharge Planning Initial Assessment Updated by [email or web address]: Christie [place] on 10/14/19 4:44 pm * Is the patient Alert and Oriented? Yes * How many steps to enter\exit or inside your home? 0/0 * PCP [facility]DWEL * Pharmacy [facility] * Preadmission Environment Home with Family * ADLs Independent * Equipment Cane Crutch Elevated [place] Seat * List name and contact numbers for known caregivers / representatives who currently or will assist patient after discharge: MITZI TUCKER [phone] * Verbal permission to speak to the caregivers and representatives has been obtained from the patient. Yes * Community resources currently utilized None * Additional services required to return to the preadmission environment? Yes * Can the patient safely return to the preadmission environment? Yes * Has this patient been hospitalized within the prior 30 days at any hospital? Yes Coverage Notice Reviewer: [id number] Pastor Pizarro Notice Issued Date-Time: 10/13/2019 15:49 Notice Type: Medicare Outpatient Observation Notice Notice Delivered To: Patient Relationship to Patient: Binding Folder Machine Name: Delivery Method: HAND - Hand Delivered Rosalba Days: Prior Verbal Notification: Recipient Understood Notice: Yes Recipient Signature: Yes Med Rec Note Co-signed by Attending: Coverage Notice Comment: Last DP export: 10/14/19 4:14 p Patient Name: TIFFANIE CESAR Page [id number] at 1722 All edits/amendments must be made on the electronic document DICTATION DATE: 10/14/191721 MID LEVEL PRACTITIONER: KANE 10/14/191721 RPT#: [id number] DC DATE: STATUS: ADM IN [facility] [address] [place] [address] END OF REPORT
--- NOTE | 2019-10-14 17:29 | MORECARE ---
CASE MANAGEMENT DISCHARGE SUMMARY PATIENT: TIFFANIE CESAR UNIT: [id number] ADM DATE: 10/13/19 AGE: 89 : 32 SEX: M ROOM/BED: D.2114 AUTHOR: ORQUIDEA,DOC PHYSICIAN: REFERRING PHYSICIAN: DELILAH RODRÍGUEZ MD DATE OF SERVICE: 10/14/19 Discharge Plan Patient Name: TIFFANIE CESAR Facility: [facility]:[place] : 1930 Planned Disposition: Anticipated Discharge Date: Discharge Date: Expected LOS: Initial Reviewer: [id number] Initial Review Date: 10/12/2019 Generated: 10/14/19 6:28 pm Comments DCP- Discharge Planning Updated by [email or web address]: Christie [place] on 10/14/19 4:[address] Patient Name: TIFFANIE CESAR Encounter No: [id number] : 1930 Primary Insurance: MEDICARE A & B Anticipated DC Date: Planned Disposition: External Planned Provider: : DCP follow-up note: CM met with patient to complete initial dc planning assessment. CM educated patient on the CM role and verbal consent given by patient to complete assessment. CM verified patient's address, phone number, and emergency contact phone numbers. Patient lives at home his Pamella. Her phone number is [phone]. Pt requires o2 at home. SHERYL signed for any available DME provider. Called each DME provider and gave patient carranza for each. Patient stated he could afford 45 dollars per month with [facility] [place]. Called [facility] and faxed clinicals. Patient denied further known discharge needs at this time. . Transportation provider at discharge will be Pamella . CM will continue to follow and will assist as needed with dc plans/needs. DC IMM delivered, explained, signed by the patient, and placed in his chart. Signed form also left with patient. Christie [place] DCPIA - Discharge Planning Initial Assessment Updated by [id number]: Christie [place] on 10/14/19 4:44 pm * Is the patient Alert and Oriented? Yes * How many steps to enter\exit or inside your home? 0/0 * PCP [facility]DWEL * Pharmacy [facility] * Preadmission Environment Home with Family * ADLs Independent * Equipment Cane Crutch Elevated [place] Seat * List name and contact numbers for known caregivers / representatives who currently or will assist patient after discharge: PAMELLA TUCKER [phone] * Verbal permission to speak to the caregivers and representatives has been obtained from the patient. Yes * Community resources currently utilized None * Additional services required to return to the preadmission environment? Yes * Can the patient safely return to the preadmission environment? Yes * Has this patient been hospitalized within the prior 30 days at any hospital? Yes Coverage Notice Reviewer: [id number] Pastor Pizarro Notice Issued Date-Time: 10/13/2019 15:49 Notice Type: Medicare Outpatient Observation Notice Notice Delivered To: Patient Relationship to Patient: Client Strategist Name: Delivery Method: HAND - Hand Delivered Rosalba Days: Prior Verbal Notification: Recipient Understood Notice: Yes Recipient Signature: Yes Med Rec Note Co-signed by Attending: Coverage Notice Comment: Last DP export: 10/14/19 4:22 p Patient Name: TIFFANIE CESAR Page [id number] at 1729 All edits/amendments must be made on the electronic document DICTATION DATE: 10/14/191727 SOLAR SITE ASSESSMENT SPECIALIST: KANE 10/14/191727 RPT#: [id number] DC DATE: STATUS: ADM IN [facility] [address] [place] [address] END OF REPORT
--- NOTE | 2019-10-14 18:00 | NUR ---
REVIEWED DISCHARGE INSTRUCTIONS WITH PT STATES UNDERSTANDING COPY GIVEN SALINE LOCK DCD TO RT WRIST WITH IV CATHETER INTACT SITE FREE OF REDNESS OR EDEMA PT DISCHARGED HOME IN STABLE CONDITION WITH ALL PERSONAL BELONGINGS LEFT UNIT VIA W/C
--- NOTE | 2019-10-15 08:44 | MORECARE ---
CASE MANAGEMENT DISCHARGE SUMMARY PATIENT: TIFFANIE CESAR UNIT: [id number] ADM DATE: 10/13/19 AGE: 89 : 32 SEX: M ROOM/BED: D.6124 AUTHOR: ORQUIDEA,DOC PHYSICIAN: REFERRING PHYSICIAN: DELIALH RODRÍGUEZ MD DATE OF SERVICE: 10/15/19 Discharge Plan Patient Name: TIFFANIE CESAR Facility: [facility]:[place] : 1930 Planned Disposition: Home Anticipated Discharge Date: 10/14/19 Discharge Date: 10/14/2019 Expected LOS: 1 Initial Reviewer: [email or web address] Initial Review Date: 10/12/2019 Generated: 10/15/19 9:43 am Comments DCP- Discharge Planning Updated by [email or web address]: Christie [place] on 10/14/19 4:[address] Patient Name: TIFFANIE CESAR Encounter No: [id number] : 1930 Primary Insurance: MEDICARE A & B Anticipated DC Date: Planned Disposition: External Planned Provider: : DCP follow-up note: CM met with patient to complete initial dc planning assessment. CM educated patient on the CM role and verbal consent given by patient to complete assessment. CM verified patient's address, phone number, and emergency contact phone numbers. Patient lives at home his Pamella. Her phone number is [phone]. Pt requires o2 at home. SHERYL signed for any available DME provider. Called each DME provider and gave patient carranza for each. Patient stated he could afford 45 dollars per month with [facility]. Called [facility] and faxed clinicals. Patient denied further known discharge needs at this time. . Transportation provider at discharge will be Pamella . CM will continue to follow and will assist as needed with dc plans/needs. DC IMM delivered, explained, signed by the patient, and placed in his chart. Signed form also left with patient. Christie [place] DCPIA - Discharge Planning Initial Assessment Updated by [email or web address]: Christie [place] on 10/14/19 4:44 pm * Is the patient Alert and Oriented? Yes * How many steps to enter\exit or inside your home? 0/0 * PCP [facility]DWEL * Pharmacy [facility] * Preadmission Environment Home with Family * ADLs Independent * Equipment Cane Crutch Elevated [place] Seat * List name and contact numbers for known caregivers / representatives who currently or will assist patient after discharge: PAMELLA TUCKER [phone] * Verbal permission to speak to the caregivers and representatives has been obtained from the patient. Yes * Community resources currently utilized None * Additional services required to return to the preadmission environment? Yes * Can the patient safely return to the preadmission environment? Yes * Has this patient been hospitalized within the prior 30 days at any hospital? Yes Coverage Notice Reviewer: [id number] Pastor Pizarro Notice Issued Date-Time: 10/13/2019 15:49 Notice Type: Medicare Outpatient Observation Notice Notice Delivered To: Patient Relationship to Patient: Water Restoration Technician Name: Delivery Method: HAND - Hand Delivered Rosalba Days: Prior Verbal Notification: Recipient Understood Notice: Yes Recipient Signature: Yes Med Rec Note Co-signed by Attending: Coverage Notice Comment: Last DP export: 10/14/19 4:29 p Patient Name: TIFFANIE CESAR Page [phone] at 0844 All edits/amendments must be made on the electronic document DICTATION DATE: 10/15/19842 SUPERVISOR SAFETY DEPOSIT: KANE 10/15/19 0843 RPT#: [id number] DC DATE:10/14/19 STATUS: DIS IN [facility] [address] [place] [address] END OF REPORT
== END 2019-10-14 18:00 | disposition home or self-care (01) | DRG 280 ==
LOC: D.ER 14:08 → D.M2 14:56 → OBSVTIME 10-13 16:00 → D.M2 10-13 16:25
PROVIDERS: Family Medicine; ADMIT Internal Medicine Nephrology; ATTEND Internal Medicine Nephrology
DX: I22.2 Subsequent non-ST elevation (NSTEMI) myocardial infarction (principal); I50.23 Acute on chronic systolic (congestive) heart failure; N17.9 Acute kidney failure, unspecified; I42.9 Cardiomyopathy, unspecified; I13.0 Hypertensive heart and chronic kidney disease with heart failure and stage 1 through stage 4 chronic kidney disease, or unspecified chronic kidney disease; I25.110 Atherosclerotic heart disease of native coronary artery with unstable angina pectoris; I21.09 ST elevation (STEMI) myocardial infarction involving other coronary artery of anterior wall; E78.5 Hyperlipidemia, unspecified; E03.9 Hypothyroidism, unspecified; G89.29 Other chronic pain; M54.9 Dorsalgia, unspecified; N18.9 Chronic kidney disease, unspecified

== ENCOUNTER → 2019-10-30 18:03 | Outpatient (CLI) | payer MEDICARE, BC ==
[2019-10-14 14:17] VITALS: BMI 24.9
[~2019-10-30 18:03] MED LIST changes: +LASIX40 MG PO
[2019-10-30 19:45] LABS: ANION GAP 14.7 mmol/L (8-16); CALCIUM 9.4 mg/dL (8.5-10.1); CARBON DIOXIDE 28.8 mmol/L (21.0-32.0); CREATININE - SERUM 1.6 mg/dL (0.6-1.3); POTASSIUM - SERUM 4.5 mmol/L (3.5-5.1)
== END | disposition home or self-care (01) ==
LOC: D.LABREF 18:03
PROVIDERS: ATTEND Internal Medicine Cardiovascular Disease
DX: I50.9 Heart failure, unspecified (principal)

== ENCOUNTER → 2020-01-14 09:31 | Outpatient (CLI) | payer MEDICARE, BC ==
[2019-10-14 14:17] VITALS: BMI 24.9
== END | disposition home or self-care (01) ==
LOC: D.HCCECHO 09:31
PROVIDERS: ATTEND Internal Medicine Cardiovascular Disease
DX: I25.10 Atherosclerotic heart disease of native coronary artery without angina pectoris (principal)